=== PATIENT | female | born 1950 | race Caucasian/White ===

== ENCOUNTER → 2017-05-11 | Outpatient (CLI) | payer MEDICARE, OTHER ==
[~2017-05-11] MED LIST: ACET325 PO; COMMODE 3:1; DOXY100 PO; IMIT25TA PO; LOVA20; MIDO5 PO; MVI PO; NADO1TAB17 PO; NADO80TA PO; RIVA10 PO; TOPI25 PO; TRAM50 PO; VITA100T65 PO; WELL150T PO
[2017-05-11 10:29] LABS: AUTOMATED NEUTROPHIL # 3.9 TH/MM3 (1.8-7.7); BASOPHIL % 0.8 % (0.0-2.0); EOSINOPHIL # 0.4 TH/MM3 (0-0.4); EOSINOPHIL % 5.8 % (0.0-4.0); HEMATOCRIT 40.6 % (35.0-46.0); HEMO FLAGS DIFF FINAL; LYMPH % 24.5 % (9.0-44.0); LYMPHOCYTE # 1.5 TH/MM3 (1.0-4.8); MEAN CORPUSCULAR HEMOGLOBIN 32.2 PG (27.0-34.0); MEAN CORPUSCULAR HGB CONC 32.9 % (32.0-36.0); MONO % 7.9 % (0.0-8.0); PLATELET COUNT 188 TH/MM3 (150-450); RED BLOOD COUNT 4.14 MIL/MM3 (4.00-5.30); RED CELL DISTRIBUTION WIDTH 13.9 % (11.6-17.2); WHITE BLOOD COUNT 6.3 TH/MM3 (4.0-11.0)
--- NOTE | 2017-05-11 17:22 | EKG ---
Date Performed: 05/11/2017 Time Performed: 10:32:20 PTAGE: 66 years EKG: Sinus rhythm POSSIBLE RIGHT VENTRICULAR CONDUCTION DELAY Since previous tracing, no significant change noted BORD CASTRO ECG PREVIOUS TRACING : 03/07/2015 14.38 DOCTOR: Dung Bills Interpretating Date/Time 05/11/2017 17:22:00
== END ==
LOC: CLAB 10:04
PROVIDERS: ATTEND Surgery
DX: D05.12 Intraductal carcinoma in situ of left breast (principal); R94.31 Abnormal electrocardiogram [ECG] [EKG]
CPT/HCPCS: 36415; 85025; 93005

== ENCOUNTER 2018-04-16 14:32 | Inpatient (IN) ==
[2018-04-16] MEDS ORDERED: Ibuprofen 600 MG Tablet PO ONE (16:29)
[2018-04-16] MEDS ORDERED: MethylPREDNISolone Sod Succinate Inj 125 MG/2 ML Vial IV.PUSH ONE ×2 (16:29→22:00)
[2018-04-16] MEDS ORDERED: Sod Chloride 0.9% Inj 1,000 ML IV.SIG SCH (16:30)
--- NOTE | 2018-04-16 16:35 | ED ---
HPI General Chief Complaint: Respiratory Symptoms Stated Complaint: respiratory symptoms x 1 wk Time Seen by Provider: 04/16/18 16:24 Source: patient Mode of arrival: ambulatory Limitations: no limitations History of Present Illness HPI Narrative: Patient is a 67-year-old female who presents to the emergency room with complaints of fever, cough, congestion which has been ongoing for the past week. Patient reports that for the past week, she has had low-grade fevers with a T-max of 102 degrees. Patient reports that she has been coughing and bringing up thick yellow to green sputum. Patient reports that she feels congested nasally, reports that with her low-grade fevers, she has been taking antipyretics for relief of her symptoms. Patient reports that the last time she took either Tylenol Motrin was last night. Denies any sick contacts at home. She did have a flu vaccine this year. Patient reports history of hypothyroidism as well as reactive airway disease. Patient is a non-smoker, no recent travels or trips, no other complaints. MD Complaint: Reports fever, cough and nasal congestion Onset (ago): week(s) Duration: constant Severity: moderate Severity scale (1-10): 7 Relieving factors: nothing Exacerbating factors: nothing Description of mucous: Reports yellow and green Able to tolerate fluids by mouth: Yes Associated symptoms: Reports fever, chills, myalgias, rhinorrhea, nasal congestion and cough Treatments prior to arrival: Reports none Related Data Home Medications Medication Instructions Recorded Confirmed Cholesterol Med 04/16/18 bupropion HCl [Wellbutrin XL] 150 mg PO QPM 04/16/18 04/16/18 cranberry 04/16/18 nadolol 40 mg PO DIRECTED 04/16/18 04/16/18 sumatriptan succinate [Imitrex] 04/16/18 topiramate [Topamax] 50 mg PO BID 04/16/18 04/16/18 Allergies Allergy/AdvReac Type Severity Reaction Status Date / Time codeine Allergy Severe VOMITING Unverified 01/06/17 19:02 penicillin G Allergy Severe Hives Unverified 04/16/18 14:47 Sulfa (Sulfonamide Allergy Severe Hives Unverified 04/16/18 14:47 Antibiotics) thiopental Allergy Severe Respiratory Unverified 04/16/18 14:47 Failure diatrizoate meglumine Allergy Intermediate NAUSEA/VOMI Unverified 01/06/17 19:02 TING gadobenic acid Allergy Intermediate NAUSEA/VOMI Unverified 01/06/17 19:02 TING gadodiamide Allergy Intermediate NAUSEA/VOMI Unverified 01/06/17 19:02 TING gadoteridol Allergy Intermediate NAUSEA/VOMI Unverified 01/06/17 19:02 TING iodixanol Allergy Intermediate NAUSEA/VOMI Unverified 01/06/17 19:02 TING iohexol Allergy Intermediate NAUSEA/VOMI Unverified 01/06/17 19:02 TING ciprofloxacin AdvReac Intermediate Hives Unverified 04/16/18 14:47 TAPE Allergy Severe Blister Uncoded 04/16/18 14:47 Review of Systems ROS: all other systems reviewed are negative [facility] Medical History Medical History High cholesterol (Acute) History of breast cancer (Acute) History of fracture of right hip (Acute) History of hysterectomy (Acute) Migraine (Acute) Osteoporosis (Acute) Surgical History Surgical History History of appendectomy (Acute) History of bilateral mastectomy (Acute) History of cholecystectomy (Acute) History of sinus surgery (Acute) History of total left hip replacement (Acute) Social History Social History Substance History: No History of Abuse Smoking Status: Former smoker How Often Do You Have a Drink Containing Alcohol: Never Immunization History Tetanus Immunization: Unsure Exam Narrative Exam Narrative: GENERAL: Moderate disease SKIN: Focused skin assessment warm/dry. HEAD: Atraumatic. Normocephalic. EYES: Pupils equal and round. No scleral icterus. No injection or drainage. ENT: No nasal bleeding or discharge. Mucous membranes pink and moist. NECK: Trachea midline. No JVD. CARDIOVASCULAR: Tachycardic. No murmur appreciated. RESPIRATORY: No accessory muscle use. Patient with wheezing at lung bases, rhonchi at lung bases. Breath sounds equal bilaterally. GASTROINTESTINAL: Abdomen soft, non-tender, nondistended. Hepatic and splenic margins not palpable. MUSCULOSKELETAL: No obvious deformities. No clubbing. No cyanosis. No edema. NEUROLOGICAL: Awake and alert. No obvious cranial nerve deficits. Motor grossly within normal limits. Normal speech. PSYCHIATRIC: Appropriate mood and affect; insight and judgment normal. Course Initial Documented Vital Signs Temperature 101.0 F H 04/16/18 14:43 Pulse Rate 117 H 04/16/18 14:43 Respiratory Rate 20 04/16/18 14:43 Blood Pressure 140/79 04/16/18 14:43 Pulse Oximetry 93 L 04/16/18 14:43 Last Documented Vital Signs Temperature 99.2 F 04/16/18 17:51 Pulse Rate 94 H 04/16/18 17:51 Respiratory Rate 16 04/16/18 17:51 Blood Pressure 104/51 L 04/16/18 17:51 Pulse Oximetry 94 L 04/16/18 17:53 Medical Decision Making MDM Narrative Medical decision making narrative: During the course of the patients emergency department visit, the patients history, examination, and differential diagnosis were reviewed with the patient. The patient was placed on a night monitor with oximetry and frequent blood pressure monitoring. The patient had an IV access obtained and blood work sent for analysis. The patient was initially provided Motrin, IV steroids as well as IV fluid. Patient is currently refusing any duo nebs as she says that this does not help her and only makes her heart rate fast. The patients laboratory studies were reviewed and remarkable for: wbc 12, hgb 12.5, hct 38.2, glucose 284 sodium 136, potassium 3.2, bun 10, creatine 0.87 lactic acid 1.0 trop less than 0.02 Radiology studies were reviewed and remarkable for : no evidence of infiltrates I reviewed all labs and also to the patient in detail, patient will require observation overnight as she does have a grossly abnormal EKG. This EKG shows some ST segment depressions as well as T wave inversions in leads II, III, aVF as well as V3 to V6 which is a change from previous EKGs. Plan to admit her to the chest pain unit for trending of her cardiac enzymes. Patient with no symptoms of chest pain at this time, reports only pain to her ribs when she coughs. Case reviewed with Dr. Saeed who accepts patient to service Medical Screen Exam Complete: Yes Emergency Medical Condition: Yes Differential Diagnosis Differential Diagnosis: Influenza, pneumonia, reactive airway disease, viral syndrome Medical Records Medical records reviewed: Yes I reviewed the patient's medical records. Lab Data Result diagrams: 04/16/18 16:38 04/16/18 16:38 Lab Results 04/16/18 04/16/18 04/16/18 Range/Units 16:30 16:38 16:38 CBC w Diff Slide review pending WBC 12.0 H (4.0-11.0) th/mm3 RBC 3.94 L (4.00-5.30) mil/mm3 Hgb 12.5 (11.6-15.3) gm/dL Hct 38.2 (35.0-46.0) % MCV 96.8 (80.0-100.0) fL MCH 31.7 (27.0-34.0) pg MCHC 32.8 (32.0-36.0) % RDW 12.5 (11.6-17.2) % Plt Count 284 (150-450) th/mm3 MPV 8.9 (7.0-11.0) fL Neut % (Auto) 81.3 H (16.0-70.0) % Lymph % (Auto) 7.4 L (9.0-44.0) % Bollinger % (Auto) 7.4 (0.0-8.0) % Eos % (Auto) 1.2 (0.0-4.0) % Baso % (Auto) 2.7 H (0.0-2.0) % Neut # (Auto) 9.8 H (1.8-7.7) th/mm3 Lymph # (Auto) 0.9 L (1.0-4.8) th/mm3 Bollinger # (Auto) 0.9 (0.0-0.9) th/mm3 Eos # (Auto) 0.1 (0.0-0.4) th/mm3 Baso # (Auto) 0.3 H (0.0-0.2) th/mm3 Differential Comment . Sodium 136 (136-145) meq/L Potassium 3.2 L (3.5-5.1) meq/L Chloride 99 (98-107) meq/L Carbon Dioxide 27.9 (21.0-32.0) meq/L Anion Gap 9 (5-15) meq/L BUN 10 (7-18) mg/dL Creatinine 0.87 (0.50-1.00) mg/dL Estimated GFR 65 L (>89) mL/min Random Glucose 125 H (74-106) mg/dL Lactic Acid (0.4-2.0) mmol/L Calcium 8.9 (8.5-10.1) mg/dL Magnesium 2.0 (1.5-2.5) mg/dL Total Bilirubin 0.7 (0.2-1.0) mg/dL AST 42 H (15-37) U/L ALT 50 (10-53) U/L Alkaline Phosphatase 173 H (45-117) U/L Total Creatine Kinase 96 (26-192) U/L Troponin I Less than 0.02 L (0.02-0.05) ng/mL Total Protein 7.7 (6.4-8.2) g/dL Albumin 3.0 L (3.4-5.0) g/dL 04/16/18 Range/Units 16:38 CBC w Diff WBC (4.0-11.0) th/mm3 RBC (4.00-5.30) mil/mm3 Hgb (11.6-15.3) gm/dL Hct (35.0-46.0) % MCV (80.0-100.0) fL MCH (27.0-34.0) pg MCHC (32.0-36.0) % RDW (11.6-17.2) % Plt Count (150-450) th/mm3 MPV (7.0-11.0) fL Neut % (Auto) (16.0-70.0) % Lymph % (Auto) (9.0-44.0) % Bollinger % (Auto) (0.0-8.0) % Eos % (Auto) (0.0-4.0) % Baso % (Auto) (0.0-2.0) % Neut # (Auto) (1.8-7.7) th/mm3 Lymph # (Auto) (1.0-4.8) th/mm3 [place]linger # (Auto) (0.0-0.9) th/mm3 Eos # (Auto) (0.0-0.4) th/mm3 Baso # (Auto) (0.0-0.2) th/mm3 Differential Comment Sodium (136-145) meq/L Potassium (3.5-5.1) meq/L Chloride (98-107) meq/L Carbon Dioxide (21.0-32.0) meq/L Anion Gap (5-15) meq/L BUN (7-18) mg/dL Creatinine (0.50-1.00) mg/dL Estimated GFR (>89) mL/min Random Glucose (74-106) mg/dL Lactic Acid 1.0 (0.4-2.0) mmol/L Calcium (8.5-10.1) mg/dL Magnesium (1.5-2.5) mg/dL Total Bilirubin (0.2-1.0) mg/dL AST (15-37) U/L ALT (10-53) U/L Alkaline Phosphatase (45-117) U/L Total Creatine Kinase (26-192) U/L Troponin I (0.02-0.05) ng/mL Total Protein (6.4-8.2) g/dL Albumin (3.4-5.0) g/dL Imaging Data Radiologist's impression: Chest X-Ray 04/16/18 16:29 CONCLUSION: No acute cardiopulmonary disease. There is no evidence of pneumonia. ECG Data EKG Prior to Arrival: No Attestation: I personally reviewed and interpreted this ECG as follows: Prior ECG tracings: available for review Interpretation: EKG at 1641 shows normal sinus rhythm at 97 bpm, QT/QTc 307/361 , patient with diffuse ST and T wave inversions in leads V3 to V6 as well as 2, 3 and aVF. This is a change when compared to previous EKGs from May 11, 2017. Discharge Plan Discharge Disposition Patient Disposition: 30 Still Patient Discharge Condition Condition: Stable Discharge Details Diagnosis: Abnormal EKG, Bronchitis Physicians Team ED Provider: Sara Fuentes Primary Care Provider: Jeannette Alexander Rxs /Orders / Referrals /Forms Prescriptions: No Action sumatriptan succinate [Imitrex] 50 mg Tablet RF: 0 nadolol 40 mg Tablet 40 mg PO DIRECTED RF: 0 bupropion HCl [Wellbutrin XL] 150 mg Tablet Extended Release 24 Hr 150 mg PO QPM RF: 0 topiramate [Topamax] 50 mg Tablet 50 mg PO BID RF: 0 Cholesterol Med RF: 0 cranberry RF: 0 Discharge Interventions Interventions: Vital Signs Last Done: 04/16/18 17:51 Status ED Status: With Doctor
[2018-04-16 16:59] LABS: Chloride 99 meq/L (98-107); Potassium 3.2 meq/L (3.5-5.1); Sodium 136 meq/L (136-145)
[2018-04-16 17:00] LABS: Baso # (Auto) 0.3 th/mm3 (0.0-0.2); Baso % (Auto) 2.7 % (0.0-2.0); Eos # (Auto) 0.1 th/mm3 (0.0-0.4); Eos % (Auto) 1.2 % (0.0-4.0); Hematocrit 38.2 % (35.0-46.0); Hemoglobin 12.5 gm/dL (11.6-15.3); Lymph # (Auto) 0.9 th/mm3 (1.0-4.8); Lymph % (Auto) 7.4 % (9.0-44.0); Mean Corpuscular HGB Conc 32.8 % (32.0-36.0); Mean Corpuscular Hemoglobin 31.7 pg (27.0-34.0); Mean Corpuscular Volume 96.8 fL (80.0-100.0); Mean Platelet Volume 8.9 fL (7.0-11.0); Mono # (Auto) 0.9 th/mm3 (0.0-0.9); Mono % (Auto) 7.4 % (0.0-8.0); Neut # (Auto) 9.8 th/mm3 (1.8-7.7); Neut % (Auto) 81.3 % (16.0-70.0); Platelet Count 284 th/mm3 (150-450); Red Blood Count 3.94 mil/mm3 (4.00-5.30); Red Cell Distribution Width 12.5 % (11.6-17.2)
[2018-04-16 17:02] LABS: Anion Gap 9 meq/L (5-15); Blood Urea Nitrogen 10 mg/dL (7-18); Calcium 8.9 mg/dL (8.5-10.1); Carbon Dioxide 27.9 meq/L (21.0-32.0); Glucose,Random 125 mg/dL (74-106)
[2018-04-16 17:05] LABS: Alanine Aminotransferase 50 U/L (10-53); Aspartate Aminotransferase 42 U/L (15-37); Glomerular Filtration Rate 65 mL/min (>89)
[2018-04-16 17:07] LABS: Total Protein 7.7 g/dL (6.4-8.2)
[2018-04-16 17:08] LABS: Alkaline Phosphatase 173 U/L (45-117)
--- NOTE | 2018-04-16 17:08 | XR ---
EXAM DATE: 04/16/2018 4:57 PM EST AGE/SEX: 67 years / Female INDICATIONS: Fever. CLINICAL DATA: This is the patient's initial encounter. Patient reports that signs and symptoms have been present for 1 week and indicates a pain score of 4/10. MEDICAL/SURGICAL HISTORY: . COPD None. COMPARISON: POI, CT CHEST W/O CONTRAST, 10/05/2017. . FINDINGS: A single AP view of the chest demonstrates the lungs to be symmetrically aerated without evidence of mass, infiltrate or effusion. The cardiomediastinal contours are unremarkable. Osseous structures a re intact with postsurgical changes again noted involving the right breast and axillary region with m ultiple clips and idalmis. Implants are present. CONCLUSION: No acute cardiopulmonary disease. There is no evidence of pneumonia. Electronically signed by: Dhruv Carrillo MD 04/16/2018 5:06 PM EST
[2018-04-16 17:20] LABS: Creatine Kinase 96 U/L (26-192)
[2018-04-16] MEDS ORDERED: Azithromycin Inj 500 MG in Sodium Chlor 0.9% Inj 250 ML IV.SIG ONE (17:26)
[2018-04-16] MEDS ORDERED: Aspirin 325 MG Tablet PO ONE (18:18)
[2018-04-16] MEDS ORDERED: Heparin 10,000 UNITS/10 ML Vial (for IV use) IV.PUSH STA (18:21)
[2018-04-16 18:22] LABS: Eosinophils 2 % (0-4); Lymphocytes 8 % (9-44); Monocytes 4 % (0-8)
[2018-04-16 18:23] LABS: Platelet Estimate Normal (Normal); Platelet Morphology Normal (Normal); RBC Morphology Normal (Normal)
[2018-04-16 18:50] LABS: Activated Partial Thrombo Time 32.6 sec (23.4-31.7); INR 1.1 Ratio; Prothrombin Time 11.3 sec (9.8-11.6)
[2018-04-16] MEDS: Sod Chloride 0.9% Inj 1,000 ML IV.CONT SCH (19:33)
[2018-04-16] MEDS: Heparin Drip 25,000 UNIT/250 ML BAG IV.CONT PRN (19:46)
[2018-04-16] MEDS: Topiramate 25 MG Tablet PO SCH (23:46)
[2018-04-17 01:22] LABS: Bilirubin,Urine Negative (Negative); Clarity,Urine Clear (Clear); Color,Urine Yellow (Yellw/Straw); Glucose,Urine (UA) Negative (Negative); Leukocyte Esterase,Urine Negative (Negative); Nitrite,Urine Negative (Negative); Specific Gravity,Urine Less/Equal 1.005 (1.002-1.035); Urobilinogen,Urine 0.2 mg/dL (Less than 2)
[2018-04-17 01:27] LABS: Squamous Epithelial Cell,Urine 0-5 /hpf (0-5); WBC,Urine 0-5 /hpf (0-5)
--- NOTE | 2018-04-17 03:30 | P.HPIM ---
History of Present Illness Service: [facility] Primary Care Physician: Jeannette Alexander MD Chief Complaint: Fever, cough, and congestion History of Present Illness: Mrs. Lyn is a 67-year-old female with a history of hyperthyroidism, breast cancer tx with chemo 20 yrs ago (no radiation), and asthma who presented to the emergency room in [place] complaining of fever, productive cough with green to thick yellow sputum, and congestion ongoing for a week. She had an abnormal EKG and was admitted to the [facility] for observation but after discussing the EKG changes with Dr. Navarrete, the fire protection designer on-call, Dr. Saeed decided to transfer the patient to [facility] for further cardiac evaluation. The patient is seen shortly after arrival from [place]. She reports that about two weeks ago, she developed right chest discomfort/tightness with difficulty taking a deep breath present at all times. She said she'd felt similar symptoms from asthma exacerbations. Symptoms weren't exertional. One week ago, her symptoms started to become accompanied by fever up to tmax 102.6 with productive cough with thick discolored sputum. She states that she never had any chest pain or overt shortness of breath. She has been having night sweats. She reports that several family members have cardiac disease. Her father at age 65 form heart problems. 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 Review of Systems All other systems reviewed negative except as stated in HPI PMFSH - History History Provided By: Patient - Medical History Medical History: Medical History (Last Updated 04/17/18 @ 03:23 by DEVAN Finn) High cholesterol History of breast cancer History of fracture of right hip History of hysterectomy Hyperparathyroidism Hyperthyroidism Migraine Osteoporosis - Surgical History Surgical History: Surgical History (Last Reviewed 04/17/18 @ 03:12 by DEVAN Finn) History of appendectomy History of bilateral mastectomy History of cholecystectomy History of sinus surgery History of total left hip replacement - Family History Family History: Family History (Last Updated 04/17/18 @ 04:32 by DEVAN Finn) Father Family history of heart disease Grandparent Breast cancer Family history of heart disease Aunt Breast cancer Other Diabetes mellitus Family history of hypertension - Social History I have reviewed the patient's Social History: Yes - Tobacco History Second Hand Smoke Exposure: No Tobacco Use In Past 30 Days: No Smoking Status: Former smoker Tobacco Type: Cigarettes Packs Per Day: 1 Years Smoked: 47 Smoking End Date: 2+ years ago - Alcohol History How Often Do You Have a Drink Containing Alcohol: Never - Substance Use History Substance History: No History of Abuse - Immunization History Tetanus Immunization: >5 Years Hx Influenza Vaccine This Season: No Medications and Allergies Active Medications: Active Medications Albuterol (Albuterol Neb (Prn)) 1.25 mg NEB Q2HR NEB PRN PRN Reason: SHORTNESS OF BREATH Aspirin (Aspirin) 325 mg PO DAILY [facility] Atorvastatin Calcium (Lipitor) 40 mg PO HS [facility] Last Admin: 04/16/18 23:45 Dose: 40 mg Bupropion HCl (Wellbutrin Sr) 150 mg PO QPM [facility] Heparin Sodium/Dextrose (Heparin/D5w 25,000 U/250 Ml) 25,000 unit in 250 mls @ 6 mls/hr IV.CONT TITRATE PRN; Protocol PRN Reason: Per Protocol Last Titration: 04/17/18 02:19 Dose: 700 units/hr, 7 mls/hr Sodium Chloride (Ns Inj) 1,000 mls @ 42 mls/hr IV.CONT .[id number] [facility] Last Admin: 04/16/18 19:33 Dose: 42 mls/hr Methylprednisolone Sodium Succinate (Solumedrol Inj) 60 mg IV.PUSH Q12HR [facility] Nadolol (Corgard) 40 mg PO DAILY [facility] Sodium Chloride (Ns Flush) 2 ml IV.FLUSH BID [facility] Last Admin: 04/16/18 23:45 Dose: 2 ml Sodium Chloride (Ns Flush) 2 ml IV.FLUSH PRN PRN PRN Reason: FLUSH AFTER USING IV ACCESS Topiramate (Topamax) 50 mg PO BID [facility] Last Admin: 04/16/18 23:46 Dose: 50 mg Allergies Allergy/AdvReac Type Severity Reaction Status Date / Time codeine Allergy Severe VOMITING Unverified 01/06/17 19:02 penicillin G Allergy Severe Hives Unverified 04/16/18 14:47 Sulfa (Sulfonamide Allergy Severe Hives Unverified 04/16/18 14:47 Antibiotics) thiopental Allergy Severe Respiratory Unverified 04/16/18 14:47 Failure diatrizoate meglumine Allergy Intermediate NAUSEA/VOMI Unverified 01/06/17 19:02 TING gadobenic acid Allergy Intermediate NAUSEA/VOMI Unverified 01/06/17 19:02 TING gadodiamide Allergy Intermediate NAUSEA/VOMI Unverified 01/06/17 19:02 TING gadoteridol Allergy Intermediate NAUSEA/VOMI Unverified 01/06/17 19:02 TING iodixanol Allergy Intermediate NAUSEA/VOMI Unverified 01/06/17 19:02 TING iohexol Allergy Intermediate NAUSEA/VOMI Unverified 01/06/17 19:02 TING ciprofloxacin AdvReac Intermediate Hives Unverified 04/16/18 14:47 TAPE Allergy Severe Blister Uncoded 04/16/18 14:47 Home Medications Medication Instructions Recorded Confirmed Type Cholesterol Med 04/16/18 History bupropion HCl [Wellbutrin XL] 150 mg PO QPM 04/16/18 04/16/18 History cranberry 04/16/18 History nadolol 40 mg PO DIRECTED 04/16/18 04/16/18 History sumatriptan succinate [Imitrex] 04/16/18 History topiramate [Topamax] 50 mg PO BID 04/16/18 04/16/18 History Exam Vital signs: Vital Signs 04/16/18 14:43 04/16/18 16:18 04/16/18 17:51 Temperature 101.0 F H 99.2 F Pulse Rate 117 H 93 H 94 H Respiratory Rate 20 16 16 Blood Pressure 140/79 122/65 104/51 L Pulse Oximetry 93 L 92 L 94 L 04/16/18 17:53 04/16/18 19:22 04/16/18 20:00 Temperature 97.3 F L Pulse Rate 88 95 H Respiratory Rate 20 16 Blood Pressure 114/61 126/58 L Pulse Oximetry 94 L 92 L 94 L 04/16/18 22:15 04/17/18 01:25 04/17/18 01:48 Temperature 97.7 F Pulse Rate 78 80 82 Respiratory Rate 18 Blood Pressure 103/56 L Pulse Oximetry 95 04/17/18 02:05 Temperature Pulse Rate 83 Respiratory Rate Blood Pressure Pulse Oximetry Intake & Output 04/16/18 04/16/18 04/17/18 06:59 18:59 06:59 Intake Total 1250 / 1250 Output Total 500 / 500 Balance 1250 / 1250 -500 / -500 Weight 54 kg 55.9 kg Intake: IV 1250 / 1250 Azithromycin Inj 500 MG In NS 250 / 250 Inj 250 ML @ 250 mls/hr IV.SIG ONCE ONE Rx#:[id number] NS Inj 1,000 ML @ 1000 mls/hr 1000 / 1000 IV.SIG BOLUS SHITAL Rx#:[id number] Output: Urine 500 / 500 Other: Date of Last Bowel Movement 04/13/18 Weight On Admission 55.8 kg Narrative: GENERAL: This is a thin older female patient, in no apparent distress. SKIN: No rashes. Cool and dry. forearms with some bruising. HEAD: Atraumatic. Normocephalic. EYES: No scleral icterus. No injection or drainage. ENT: Nose without bleeding, purulent drainage. NECK: Trachea midline. No JVD. CARDIOVASCULAR: Regular rate and rhythm without murmurs, gallops, or rubs. RESPIRATORY: Expiratory wheezes posteriorly at lung bases; respirations even and unlabored. GASTROINTESTINAL: Abdomen soft, non-tender, nondistended. No guarding. MUSCULOSKELETAL: Extremities without clubbing, cyanosis, or edema. No calf tenderness. NEUROLOGICAL: Awake and alert. Motor and sensory grossly within normal limits. Normal speech. . Results - Labs CBC & Chem 7: 04/16/18 16:38 04/16/18 16:38 Labs: Short CBC 04/16/18 Range/Units 16:38 WBC 12.0 H (4.0-11.0) th/mm3 Hgb 12.5 (11.6-15.3) gm/dL Hct 38.2 (35.0-46.0) % Plt Count 284 (150-450) th/mm3 [facility] 04/16/18 16:38 Sodium 136 Potassium 3.2 L Chloride 99 Carbon Dioxide 27.9 BUN 10 Creatinine 0.87 Calcium 8.9 Cardiac Enzymes 04/16/18 04/16/18 Range/Units 16:30 20:48 Total Creatine Kinase 96 (26-192) U/L Troponin I Less than 0.02 L Less than 0.02 L (0.02-0.05) ng/mL Liver Function 04/16/18 Range/Units 16:38 Total Bilirubin 0.7 (0.2-1.0) mg/dL AST 42 H (15-37) U/L ALT 50 (10-53) U/L Alkaline Phosphatase 173 H (45-117) U/L Albumin 3.0 L (3.4-5.0) g/dL Urine 04/17/18 Range/Units 00:45 Urine Color Yellow (Yellw/Straw) Urine Clarity Clear (Clear) Urine pH 6.0 (5.0-8.5) Ur Specific [place] Less/equal 1.005 (1.002-1.035) Urine Protein Negative (Neg-Trace) mg/dL Urine Glucose (UA) Negative (Negative) mg/dL - Imaging Impressions Chest X-Ray 04/16/18 16:29 CONCLUSION: No acute cardiopulmonary disease. There is no evidence of pneumonia. Caprini VTE Risk Assessment Caprini VTE Risk Assessment: Moderate/High Risk (score >= 2) Caprini Risk Assessment Model: Point Value = 1 Point Value = 2 Point Value = 3 Point Value = 5 Age 41-60 Minor surgery BMI > 25 kg/m2 Swollen legs Varicose veins or History of unexplained or recurrent spontaneous Oral contraceptives or hormone replacement Sepsis (< 1 month) Serious lung disease, including pneumonia (< 1 month) Abnormal pulmonary function Acute myocardial infarction Congestive heart failure (< 1 month) History of inflammatory bowel disease Medical patient at bed rest Age 61-74 Arthroscopic surgery Major open surgery (> 45 min) Laparoscopic surgery (> 45 min) Malignancy Confined to bed (> 72 hours) Immobilizing plaster cast Central venous access Age >= 75 History of VTE Family history of VTE Factor V Leiden Prothrombin [id number] Lupus anticoagulant Anticardiolipin antibodies Elevated serum homocysteine Heparin-induced thrombocytopenia Other congenital or acquired thrombophilia Stroke (< 1 month) Elective arthroplasty Hip, pelvis, or leg fracture Acute spinal cord injury (< 1 month) Prophylaxis Regimen: Total Risk Factor Score Risk Level Prophylaxis Regimen 0-1 Low Early ambulation 2 Moderate Order ONE of the following: *Sequential Compression Device (SCD) *Heparin 5000 units SQ BID 3-4 Higher Order ONE of the following medications: *Heparin 5000 units SQ TID *Enoxaparin/Lovenox 40 mg SQ daily (WT < 150 kg, CrCl > 30 mL/min) *Enoxaparin/Lovenox 30 mg SQ daily (WT < 150 kg, CrCl > 10-29 mL/min) *Enoxaparin/Lovenox 30 mg SQ BID (WT < 150 kg, CrCl > 30 mL/min) AND/OR *Sequential Compression Device (SCD) 5 or more Highest Order ONE of the following medications: *Heparin 5000 units SQ TID (Preferred with Epidurals) *Enoxaparin/Lovenox 40 mg SQ daily (WT < 150 kg, CrCl > 30 mL/min) *Enoxaparin/Lovenox 30 mg SQ daily (WT < 150 kg, CrCl > 10-29 mL/min) *Enoxaparin/Lovenox 30 mg SQ BID (WT < 150 kg, CrCl > 30 mL/min) AND *Sequential Compression Device (SCD) Assessment and Plan - Plan Mrs. Lyn is a 67-year-old female with a history of hyperthyroidism, breast cancer, and reactive airway disease who presented to the emergency room in [place] complaining of fever, productive cough with green to thick yellow sputum , and congestion ongoing for a week. She had an abnormal EKG and was admitted to the [facility] for observation but after discussing the EKG changes with Dr. Navarrete, the fire protection designer on-call, Dr. Saeed decided to transfer the patient to [facility] for further cardiac evaluation. Abnormal EKG -ST depression noted on initial EKG in the inferior and lateral leads; t-wave inversion in V3 and V4 - awaiting repeat EKG -Troponin I < 0.02 x 2, awaiting repeat -Patient placed on a heparin drip -Patient transferred to [facility] -consult to cardiology, Dr. Navarrete -check 2D echocardiogram to evaluate cardiac structure and function -N.p.o. except medication Respiratory infection -Blood cultures initially drawn -Follow results -Initially given a dose of azithromycin and ceftriaxone - will continue -Continue albuterol nebs every 2 hours as needed for shortness of breath or wheezing -continue IV Solumedrol Hypokalemia -Replaced in ER -Recheck labs in a.m. and follow results -replace as indicated DVT prophylaxis -On heparin drip at this time Discussed Condition With: Dr. Bonilla, patient, RN . H&P: Quality - VTE Deep Vein Thrombosis/Pulmonary Embolism Present on Admission: No
[2018-04-17] MEDS ORDERED: Azithromycin Inj 250 MG in Sodium Chlor 0.9% Inj 250 ML IV.SIG SCH (04:00)
[2018-04-17 05:06] LABS: Hematocrit 34.5 % (35.0-46.0); Hemoglobin 11.5 gm/dL (11.6-15.3); Mean Corpuscular HGB Conc 33.3 % (32.0-36.0); Mean Corpuscular Volume 99.3 fL (80.0-100.0); Mean Platelet Volume 9.3 fL (7.0-11.0); Platelet Count 229 th/mm3 (150-450); Red Blood Count 3.48 mil/mm3 (4.00-5.30); Red Cell Distribution Width 13.2 % (11.6-17.2); White Blood Count 6.6 th/mm3 (4.0-11.0)
[2018-04-17 05:37] LABS: Thyroid Stimulating Hormone 0.052 uIU/mL (0.358-3.740)
[2018-04-17] MEDS: Azithromycin Inj 250 MG in Sodium Chlor 0.9% Inj 250 ML IV.SIG SCH (06:29)
[2018-04-17] MEDS: Topiramate 25 MG Tablet PO SCH ×2 (08:54→21:28)
[2018-04-17] MEDS: Aspirin 325 MG Tablet PO SCH ×2 (08:55→16:35)
[2018-04-17] MEDS ORDERED: MethylPREDNISolone Sod Succinate Inj 125 MG/2 ML Vial IV.PUSH SCH (09:00)
[2018-04-17] MEDS ORDERED: Nadolol 20 MG Tablet PO SCH (09:00)
[2018-04-17] MEDS ORDERED: HYDROcodone 5 MG/Homatropine 1.5 MG Syrup 5 ML UDC PO PRN (13:15)
--- NOTE | 2018-04-17 14:00 | P.PNIM ---
Subjective Interval history: 67yo f admitted with weakness and severe cough. She has had flu like symptoms with cough and congestion for weeks she was noted to have concerning changes on her EKG for ischemia for which she is admitted. serial troponins are negative and patient currently denies cp, or cardiac history.Daughter at bedside states patient unable to get out of bed for the past few days due to weakness. pt seen and examined, states she is still having dry hacking coughing, no fevers, no nv, no significant cp or sob Physical Exam Vital signs: Last Vital Signs Temp 97.9 F 04/17/18 12:00 Pulse 84 04/17/18 13:00 Resp 16 04/17/18 12:00 BP 98/52 L 04/17/18 12:00 Pulse Ox 96 04/17/18 12:00 Intake & Output 04/15/18 04/16/18 04/17/18 04/18/18 06:59 06:59 06:59 06:59 Intake Total 1250 / 1250 450 / 450 Output Total 500 / 500 Balance 750 / 750 450 / 450 Weight 55 kg pleasant 67 yo thin Results Labs CBC & Chem 7: 04/17/18 03:36 04/16/18 16:38 Labs: Microbiology 04/16/18 16:38 Blood - Peripheral Aerobic Blood Culture - Preliminary No growth in 1 day 04/16/18 16:38 Blood - Peripheral Anaerobic Blood Culture - Preliminary No growth in 1 day 04/16/18 16:30 Blood - Peripheral Aerobic Blood Culture - Preliminary No growth in 1 day 04/16/18 16:30 Blood - Peripheral Anaerobic Blood Culture - Preliminary No growth in 1 day 04/16/18 17:54 Nasal Wash Influenza Types A,B Antigen - Final Negative for FLU A and B antigen Infection due to influenza A or B cannot be ruled out since the antigen present in the sample may be below the detection limit of the test. Imaging Imaging: Impressions Chest X-Ray 04/16/18 16:29 CONCLUSION: No acute cardiopulmonary disease. There is no evidence of pneumonia. Assessment and Plan Plan ACUTE BRONCHITIS and PNA though cxr is wo visible infiltrate clinically has pulm and upper resp tract infection, fevers and productive cough, cont abx for CAP, pulmonary tx, sputum cultures, influenza swab neg. ASTHMA, chronic intermittent, w acute bronchospasm - cont steroids, can change iv medrol to prednisone, patient can not tolerate albuterol but reports doing well w advair in the past will start symbicort and cont symptomatic tx for the cough EKG ABNORMALITY w st depression and now ant lat t wave inversions - concern for ischemic heart disease, no active cp symptoms and no cardiac hx, she is on a heparin gtt, cardiology consult and echo pending, will change nadolol to metoprolol., cont asa daily may need stress testing HYPERTHYROIDISM - on nadolol, change to metoprolol, tsh is low, cont bb control, consider tapazole, follow up w endocrine MIGRAINE MORTENSEN - on topamax for prevention and imitrx prn HYPOKALEMIA - replaced, check mg DYSLIPIDEMIA - on statin at home, will get fasting lipid profile for risk stratification and continue statin HX BREAST CA s/p chemo, outpt followup. Progress Note: Quality VTE Deep Vein Thrombosis/Pulmonary Embolism Present on Admission: No
--- NOTE | 2018-04-17 14:17 | ECG ---
Date Performed: 04/16/2018 Time Performed: 16:41:28 PTAGE: 67 years EKG: Sinus rhythm POSSIBLE LEFT ATRIAL ENLARGEMENT POSSIBLE RIGHT VENTRICULAR CONDUCTION DELAY ST DEVIATION AND MODERA TE T-WAVE ABNORMALITY, CONSIDER ANTEROLATERAL ISCHEMIA CONSIDER INFERIOR ISCHEMIA ABNORMAL ECG PREVIOUS TRACING : 05/11/2017 10.32 DOCTOR: Roland Navarrete Interpretating Date/Time 04/17/2018 14:15:33
[2018-04-17] MEDS: predniSONE 10 MG Tablet PO SCH (14:22)
[2018-04-17] MEDS: Benzonatate 100 MG Capsule PO SCH ×2 (14:22→21:28)
[2018-04-17] MEDS: Budesonide-Formoterol 160/4.5 MCG 6 GM Inhaler INH SCH ×2 (14:23→21:28)
--- NOTE | 2018-04-17 14:26 | ECHRPT ---
Indication: CORONARY ATHEROSCLEROSIS CONCLUSIONS Normal left ventricular size. Wall thickness is measured at the upper limits of normal. The left ventricular size and function is normal with an ejection fraction of 65% [id number] mitral valve regurgitation. There is trace tricuspid valve regurgitation. A prominent epicardial fat pad is present. BP: / HR: Rhythm: Sinus MEASUREMENTS (Male / Female) Normal Values Technical Quality:Fair 2D ECHO LV Diastolic Diameter PLAX 4.4 cm 4.2 - 5.9 / 3.9 - 5.3 cm LV Systolic Diameter PLAX 3.2 cm IVS Diastolic Thickness 1.0 cm 0.6 - 1.0 / 0.6 - 0.9 cm LVPW Diastolic Thickness 1.0 cm 0.6 - 1.0 / 0.6 - 0.9 cm LV Relative Wall Thickness 0.5 RV Internal Dim ED PLAX 1.8 cm LVOT Diameter 2.2 cm Aortic Root Diameter 3.1 cm LA Systolic Diameter LX 3.3 cm 3.0 - 4.0 / 2.7 - 3.8 cm M-MODE AV Cusp Separation MM 2.1 cm DOPPLER AV Peak Velocity 110.0 cm/s AV Peak Gradient 4.8 mmHg AV Mean Gradient 2.0 mmHg AV Velocity Time Integral 21.9 cm LVOT Peak Velocity 91.7 cm/s LVOT Peak Gradient 3.4 mmHg LVOT Velocity Time Integral 16.5 cm AV Area Cont Eq vti 2.9 cm AV Area Cont Eq pk 3.2 cm Mitral E Point Velocity 74.0 cm/s Mitral A Point Velocity 60.2 cm/s Mitral E to A Ratio 1.2 LV E' Lateral Velocity 8.6 cm/s Mitral E to LV E' Lateral Ratio 8.6 LV E' Septal Velocity 8.0 cm/s Mitral E to LV E' Septal Ratio 9.3 PV Peak Velocity 128.0 cm/s PV Peak Gradient 6.6 mmHg FINDINGS LEFT VENTRICLE Normal left ventricular size. Wall thickness is measured at the upper limits of normal. The left ventricular systolic function is normal with an estimated ejection fraction in the range of 60-65%. RIGHT VENTRICLE Normal right ventricular size and systolic function. LEFT ATRIUM The left atrial size is normal. RIGHT ATRIUM The right atrial size is normal. ATRIAL SEPTUM No atrial level shunt is demonstrated by color flow Doppler interrogation. AORTA The aortic root and proximal ascending aorta are not well visualized. MITRAL VALVE [id number]-[id number] mitral valve regurgitation. AORTIC VALVE Trileaflet aortic valve. No aortic valve stenosis or regurgitation. TRICUSPID VALVE There is trace tricuspid valve regurgitation. The estimated pulmonary arterial pressure is __ mmHg. PULMONARY VALVE The pulmonary valve is not well visualized. VESSELS The inferior vena cava is normal in size. PERICARDIUM A prominent epicardial fat pad is present. Roland Navarrete MD, FACC, FSCAI (Electronically Signed) Final Date:17 April 2018 14:25
--- NOTE | 2018-04-17 16:19 | MB ---
cc: Roland Navarrete MD DATE: 04/17/2018 HISTORY OF PRESENT ILLNESS: Yvonne is a very pleasant 67-year-old lady with a history of hyperlipidemia, who presented to the [place] [facility] yesterday with chief complaint of nasal congestion. She was found to have significant ST segment depression in the anterolateral leads and inferior leads. She was transferred to [facility] for further evaluation and management. She completely denies any chest pain, chest discomfort, dyspnea, dyspnea on exertion, uses sympathomimetics. Otherwise, denies any GI or bleeding, PND, orthopnea or syncope. She does have fever prior to admission. PAST MEDICAL HISTORY: Includes a history of breast cancer, hyperlipidemia, right hip fracture, hysterectomy, hyperparathyroidism, hyperthyroidism, migraine headaches, osteoporosis, appendectomy, bilateral mastectomy, cholecystectomy, sinus surgery, total left hip replacement. ALLERGIES: CODEINE, PENICILLIN G, SULFA, THIOPENTAL, DIATRIZOATE, GADOBENIC ACID, GADODIAMIDE, GADOTERIDOL, IODIXANOL, IOHEXOL, CIPROFLOXACIN, TAPE. SOCIAL HISTORY: She is a former smoker. She smoked for 47 years. Denies alcohol use. MEDICATIONS: 1. Aspirin 325 daily. 2. Atorvastatin 40 mg at bedtime. 3. Azithromycin IV. 4. Ceftriaxone. 5. Heparin drip. 6. Prednisone 30 daily. 7. Topamax 50 mg b.i.d. PHYSICAL EXAMINATION: VITAL SIGNS: Blood pressure 98/52, pulse 86, respiratory rate 16, temperature 97.9. GENERAL: She is alert and oriented x3, in no acute distress. NECK: Supple. No JVD. No bruit. CARDIOVASCULAR: S1, S2. No murmurs, rubs, or gallops. LUNGS: Clear to auscultation bilaterally. ABDOMEN: Soft, nontender, nondistended with positive bowel sounds. EXTREMITIES: No extremity edema. DIAGNOSTIC DATA: Chest x-ray shows no acute cardiopulmonary disease. There is no evidence of pneumonia. EKG from 04/16/2018, normal sinus rhythm at 97 beats per minute, 1-[address] segment depression in lead V3, V4, V5, V6, II, III, aVF. EKG from 04/17/2018, normal sinus rhythm at 70 beats per minute with asymmetric T-wave inversion in lead V3, 0.5-[address] segment depression in II and III. LABORATORY DATA: White count 12.0, hemoglobin 12.5, hematocrit 38.2, platelet count 284. INR is 1.1. Sodium 136, potassium 3.2, chloride 99, bicarbonate 27.9, BUN 10, creatinine 0.7. Troponins less than 0.02 x3. TSH is 0.052 FINAL DIAGNOSES: 1. Abnormal EKG. 2. Dynamic EKG changes. 3. Elevated liver function tests. 4. Hypokalemia. 5. Anemia. 6. Elevated white count. 7. Fever. 8. Bronchitis. DISCUSSION: Being currently treated with aspirin and heparin. Interestingly, her EKG changes have improved with aspirin and heparin. She is completely asymptomatic, however. At this point in time, will need to followup her 2-D echo and follow trends in hemodynamic symptoms and EKG. MD OLAMIDE Bennett/niranjan , 01:52 PM , 02:00 PM
[2018-04-17] MEDS: Sod Chloride 0.9% Inj 1,000 ML IV.CONT SCH ×3 (16:35→21:42)
[2018-04-17] MEDS: buPROPion 150 MG 12 HR Tablet PO SCH (18:26)
[2018-04-17] MEDS: Metoprolol Tartrate 25 MG Tablet PO SCH (21:26)
[2018-04-18] MEDS: Sod Chloride 0.9% Inj 1,000 ML IV.CONT SCH ×5 (02:58→18:40)
[2018-04-18 05:14] LABS: Baso % (Auto) 0.2 % (0.0-2.0); Hematocrit 30.3 % (35.0-46.0); Hemoglobin 10.1 gm/dL (11.6-15.3); Lymph # (Auto) 0.8 th/mm3 (1.0-4.8); Lymph % (Auto) 5.4 % (9.0-44.0); Mean Corpuscular HGB Conc 33.3 % (32.0-36.0); Mean Corpuscular Hemoglobin 33.1 pg (27.0-34.0); Mean Corpuscular Volume 99.3 fL (80.0-100.0); Mono # (Auto) 0.6 th/mm3 (0.0-0.9); Neut % (Auto) 90.4 % (16.0-70.0); Platelet Count 252 th/mm3 (150-450); Red Blood Count 3.05 mil/mm3 (4.00-5.30); Red Cell Distribution Width 13.1 % (11.6-17.2); White Blood Count 15.5 th/mm3 (4.0-11.0)
[2018-04-18 05:37] LABS: Calcium 8.3 mg/dL (8.5-10.1); Carbon Dioxide 23.1 meq/L (21.0-32.0); Potassium 3.4 meq/L (3.5-5.1)
[2018-04-18 05:42] LABS: Chol/HDL Ratio 5.06 Ratio; HDL Cholesterol 23.9 mg/dL (40.0-60.0)
[2018-04-18] MEDS: Benzonatate 100 MG Capsule PO SCH ×3 (06:06→21:49)
[2018-04-18] MEDS: Azithromycin Inj 250 MG in Sodium Chlor 0.9% Inj 250 ML IV.SIG SCH (06:07)
[2018-04-18] MEDS: Heparin Drip 25,000 UNIT/250 ML BAG IV.CONT PRN (06:07)
[2018-04-18] MEDS: Topiramate 25 MG Tablet PO SCH ×2 (08:52→21:49)
[2018-04-18] MEDS: Budesonide-Formoterol 160/4.5 MCG 6 GM Inhaler INH SCH ×2 (08:53→21:49)
[2018-04-18] MEDS: Metoprolol Tartrate 25 MG Tablet PO SCH ×2 (08:53→21:49)
[2018-04-18] MEDS: Aspirin 325 MG Tablet PO SCH ×2 (08:54→09:53)
[2018-04-18] MEDS: predniSONE 10 MG Tablet PO SCH (08:55)
[2018-04-18] MEDS ORDERED: Famotidine 20 MG Tablet PO SCH (10:45)
[2018-04-18] MEDS: Famotidine 20 MG Tablet PO SCH ×2 (11:18→21:49)
--- NOTE | 2018-04-18 12:52 | P.PNIM ---
Subjective Interval history: 67yo f admitted with weakness and severe cough. She has had flu like symptoms with cough and congestion for weeks she was noted to have concerning changes on her EKG for ischemia for which she is admitted. serial troponins are negative and patient currently denies cp, or cardiac history.Daughter at bedside states patient unable to get out of bed for the past few days due to weakness. Patient had echo done and continues on heparin gtt overnight. pt seen and examined, her cough is a little better but still producing green sputum with some wheeze today, no fever, states she is having some midsternal chest pain, which she thinks may be gerd Physical Exam Vital signs: Last Vital Signs Temp 97.6 F 04/18/18 04:00 Pulse 76 04/18/18 10:00 Resp 16 04/18/18 04:00 BP 108/56 L 04/18/18 04:00 Pulse Ox 95 04/18/18 04:00 Intake & Output 04/16/18 04/17/18 04/18/18 04/19/18 06:59 06:59 06:59 06:59 Intake Total 1250 / 1250 4380 / 4380 1350 / 1350 Output Total 500 / 500 600 / 600 Balance 750 / 750 3780 / 3780 1350 / 1350 Weight 55 kg 58 kg 67yo thin w f aaox3 nad heart s1s2 reg lungs clear bases w anterior wheeze occasional good air movment abd soft nondt pos bs ext no edema no calf tenderness Results Labs CBC & Chem 7: 04/18/18 04:10 04/18/18 04:10 Labs: Microbiology 04/16/18 16:38 Blood - Peripheral Aerobic Blood Culture - Preliminary No growth in 2 days 04/16/18 16:38 Blood - Peripheral Anaerobic Blood Culture - Preliminary No growth in 2 days 04/16/18 16:30 Blood - Peripheral Aerobic Blood Culture - Preliminary No growth in 2 days 04/16/18 16:30 Blood - Peripheral Anaerobic Blood Culture - Preliminary No growth in 2 days Imaging Imaging: ECHO LEFT VENTRICLE Normal left ventricular size. Wall thickness is measured at the upper limits of normal. The left ventricular systolic function is normal with an estimated ejection fraction in the range of 60-65%. RIGHT VENTRICLE Normal right ventricular size and systolic function. LEFT ATRIUM The left atrial size is normal. RIGHT ATRIUM The right atrial size is normal. ATRIAL SEPTUM No atrial level shunt is demonstrated by color flow Doppler interrogation. AORTA The aortic root and proximal ascending aorta are not well visualized. MITRAL VALVE Lmaok-ri-[id number] mitral valve regurgitation. AORTIC VALVE Trileaflet aortic valve. No aortic valve stenosis or regurgitation. TRICUSPID VALVE There is trace tricuspid valve regurgitation. The estimated pulmonary arterial pressure is __ mmHg. PULMONARY VALVE The pulmonary valve is not well visualized. Assessment and Plan Plan ACUTE BRONCHITIS and PNA though cxr is wo visible infiltrate clinically has pulm and upper resp tract infection, fevers and productive cough, cont abx for CAP, pulmonary tx, sputum cultures, influenza swab neg. ASTHMA, chronic intermittent, w acute bronchospasm - cont steroids, can change iv medrol to prednisone, patient can not tolerate albuterol but reports doing well w advair , start symbicort and cont symptomatic tx for the cough EKG ABNORMALITY w st depression and now ant lat t wave inversions - concern for ischemic heart disease, no active cp symptoms and no cardiac hx, she is on a heparin gtt, cardiology consult and echo pending, will change nadolol to metoprolol., cont asa daily cont statin, now co of chest pain symptoms, will repeat ekg and follow up w cardiology recommendations, echo w nml lv function HYPERTHYROIDISM - on nadolol, change to metoprolol, tsh is low, cont bb control, consider tapazole, follow up w endocrine MIGRAINE MORTENSEN - on topamax for prevention and imitrx prn HYPOKALEMIA - replaced, check mg DYSLIPIDEMIA - on statin at home, will get fasting lipid profile for risk stratification and continue statin HX BREAST CA s/p chemo, outpt followup. Progress Note: Quality VTE Deep Vein Thrombosis/Pulmonary Embolism Present on Admission: No
[2018-04-18] MEDS ORDERED: MethylPREDNISolone Sod Succinate Inj 125 MG/2 ML Vial IV.PUSH ONE (13:00)
--- NOTE | 2018-04-18 13:55 | ECG ---
Date Performed: 04/18/2018 Time Performed: 10:51:00 PTAGE: 67 years EKG: Sinus rhythm Anterior T wave changes are nonspecific Borderline ECG Since the PREVIOUS TRACING , no significant change noted PREVIOUS TRACIN04/17/2018 04.04 DOCTOR: Roland Navarrete Interpretating Date/Time 04/18/2018 13:53:24
--- NOTE | 2018-04-18 13:55 | ECG ---
Date Performed: 04/17/2018 Time Performed: 04:04:34 PTAGE: 67 years EKG: Sinus rhythm . Ant/septal and lateral T wave changes may be due to myocardial ischemia Abnormal ECG Since the PREVIOUS TRACING , no significant change noted PREVIOUS TRACIN04/16/2018 16.41 DOCTOR: Roland Navarrete Interpretating Date/Time 04/18/2018 13:53:14
--- NOTE | 2018-04-18 14:27 | P.PNCA ---
Subjective Interval history: c/o intermittent epigastric pain and chest pain Medications and Allergies Active Medications: Active Medications Albuterol (Albuterol Neb (Prn)) 1.25 mg NEB Q2HR NEB PRN PRN Reason: SHORTNESS OF BREATH/WHEEZING Aspirin (Aspirin) 325 mg PO DAILY FOR[facility]LY [facility], [facility]1983 Last Admin: 04/18/18 08:54 Dose: 325 mg Aspirin (Aspirin) 325 mg PO DAILY [facility], [facility]1983 Last Admin: 04/18/18 09:53 Dose: Not Given Atorvastatin Calcium (Lipitor) 40 mg PO HS [facility], [facility]1983 Last Admin: 04/17/18 21:28 Dose: 40 mg Benzonatate (Tessalon Perles) 200 mg PO Q8H [facility], [facility]1983 Last Admin: 04/18/18 13:07 Dose: 200 mg Budesonide/Formoterol Fumarate (Symbicort 160/4.5 Mcg Inh) 2 puff INH BID [facility], 1928–1983 Last Admin: 04/18/18 08:53 Dose: 2 puff Bupropion HCl (Wellbutrin Sr) 150 mg PO QPM [facility], [facility]1983 Last Admin: 04/17/18 18:26 Dose: 150 mg Famotidine (Pepcid) 20 mg PO BID [facility]1983 Last Admin: 04/18/18 11:18 Dose: 20 mg Hydrocodone Bit/Homatropine Methylb (Hycodan Liq) 5 ml PO Q6H PRN PRN Reason: COUGH Heparin Sodium/Dextrose (Heparin/D5w 25,000 U/250 Ml) 25,000 unit in 250 mls @ 6 mls/hr IV.CONT TITRATE PRN; Protocol PRN Reason: Per Protocol Last Admin: 04/18/18 06:07 Dose: 800 units/hr, 8 mls/hr Sodium Chloride (Ns Inj) 1,000 mls @ 42 mls/hr IV.CONT .[id number] [facility] Last Admin: 04/17/18 18:27 Dose: Not Given Azithromycin 250 mg/ Sodium (Chloride) 250 mls @ 250 mls/hr IV.SIG Q24H [facility] Last Infusion: 04/18/18 08:55 Dose: Infused Ceftriaxone Sodium 1,000 mg/ (Sodium Chloride) 100 mls @ 200 mls/hr IV.SIG Q24H [facility], [facility] Last Infusion: 04/18/18 09:53 Dose: Infused Sodium Chloride (Ns Inj) 1,000 mls @ 100 mls/hr IV.CONT .Q10H [facility] Last Admin: 04/18/18 11:23 Dose: Not Given Methylprednisolone Sodium Succinate (Solumedrol Inj) 50 mg IV.PUSH ONCE ONE Stop: 04/19/18 09:01 Metoprolol Tartrate (Lopressor) 25 mg PO BID [facility] Last Admin: 04/18/18 08:53 Dose: 25 mg Nitroglycerin (Nitrostat Sl) 0.4 mg SL Q5M PRN PRN Reason: CHEST PAIN Prednisone (Deltasone) 30 mg PO DAILY [facility], [facility]1983 Last Admin: 04/18/18 08:55 Dose: 30 mg Sodium Chloride (Ns Flush) 2 ml IV.FLUSH BID [facility] Last Admin: 04/18/18 08:53 Dose: Not Given Sodium Chloride (Ns Flush) 2 ml IV.FLUSH PRN PRN PRN Reason: FLUSH AFTER USING IV ACCESS Topiramate (Topamax) 50 mg PO BID [facility] Last Admin: 04/18/18 08:52 Dose: 50 mg Allergies Allergy/AdvReac Type Severity Reaction Status Date / Time codeine Allergy Severe VOMITING Unverified 01/06/17 19:02 penicillin G Allergy Severe Hives Unverified 04/16/18 14:47 Sulfa (Sulfonamide Allergy Severe Hives Unverified 04/16/18 14:47 Antibiotics) thiopental Allergy Severe Respiratory Unverified 04/16/18 14:47 Failure diatrizoate meglumine Allergy Intermediate NAUSEA/VOMI Unverified 01/06/17 19:02 TING gadobenic acid Allergy Intermediate NAUSEA/VOMI Unverified 01/06/17 19:02 TING gadodiamide Allergy Intermediate NAUSEA/VOMI Unverified 01/06/17 19:02 TING gadoteridol Allergy Intermediate NAUSEA/VOMI Unverified 01/06/17 19:02 TING iodixanol Allergy Intermediate NAUSEA/VOMI Unverified 01/06/17 19:02 TING iohexol Allergy Intermediate NAUSEA/VOMI Unverified 01/06/17 19:02 TING ciprofloxacin AdvReac Intermediate Hives Unverified 04/16/18 14:47 TAPE Allergy Severe Blister Uncoded 04/16/18 14:47 Home Medications Medication Instructions Recorded Confirmed Type Cholesterol Med 04/16/18 History bupropion HCl [Wellbutrin XL] 150 mg PO QPM 04/16/18 04/16/18 History cranberry 04/16/18 History nadolol 40 mg PO DIRECTED 04/16/18 04/16/18 History sumatriptan succinate [Imitrex] 04/16/18 History topiramate [Topamax] 50 mg PO BID 04/16/18 04/16/18 History Physical Exam Vital signs: Vital Signs 04/17/18 15:00 04/17/18 16:00 04/17/18 17:00 Temperature 97.4 F L Pulse Rate 81 83 87 Respiratory Rate 16 Blood Pressure 95/51 L Pulse Oximetry 96 04/17/18 18:00 04/17/18 19:00 04/17/18 20:00 Temperature 98.9 F Pulse Rate 91 H 92 H 89 Respiratory Rate 16 Blood Pressure 101/54 L Pulse Oximetry 97 04/17/18 21:00 04/17/18 22:00 04/17/18 23:00 Temperature Pulse Rate 89 80 81 Respiratory Rate Blood Pressure Pulse Oximetry 04/18/18 00:00 04/18/18 01:00 04/18/18 02:00 Temperature 98.8 F Pulse Rate 85 82 73 Respiratory Rate 16 Blood Pressure 101/54 L Pulse Oximetry 93 L 04/18/18 03:00 04/18/18 04:00 04/18/18 05:00 Temperature 97.6 F Pulse Rate 71 83 79 Respiratory Rate 16 Blood Pressure 108/56 L Pulse Oximetry 95 04/18/18 06:00 04/18/18 07:00 04/18/18 08:00 Temperature Pulse Rate 69 74 77 Respiratory Rate Blood Pressure Pulse Oximetry 04/18/18 09:00 04/18/18 10:00 Temperature Pulse Rate 74 76 Respiratory Rate Blood Pressure Pulse Oximetry Intake & Output 04/17/18 04/18/18 04/18/18 18:59 06:59 18:59 Intake Total 2650 / 2650 1730 / 1730 1350 / 1350 Output Total 600 / 600 Balance 2650 / 2650 1130 / 1130 1350 / 1350 Weight 58 kg Intake: IV 1450 / 1450 1250 / 1250 1350 / 1350 Heparin/D5W 25,000 U/250 mL 25, 250 / 250 000 unit In 250 ml @ Per Protocol 6 mls/hr IV.CONT TITRATE PRN Rx#:[id number] NS Inj 1,000 ML @ 100 mls/hr IV 1000 / 1000 1000 / 1000 1000 / 1000 .CONT .Q10H [facility] Rx#:[id number] Azithromycin Inj 250 MG In NS 250 / 250 250 / 250 Inj 250 ML @ 250 mls/hr IV.SIG Q24H [facility] Rx#:[id number] Rocephin Inj 1,000 MG In NS Inj 100 / 100 100 / 100 100 ML @ 200 mls/hr IV.SIG Q24H [facility] Rx#:[id number] Oral 1200 / 1200 480 / 480 Output: Urine 600 / 600 Other: # Voids 4 Date of Last Bowel Movement 04/17/18 04/17/18 # Bowel Movements 1 0 - Constitutional no acute distress - Routine HEENT Exam Head: Present: normocephalic - Routine Neck Exam Present: supple - Routine Respiratory Exam Present: CTA bilaterally - Routine Cardiovascular Exam Present: S1, S2 - Routine Abdominal Exam Present: soft - Routine Extremities Exam Comments: no sarthak Results 04/18/18 04:10 04/18/18 04:10 Cardiac Enzymes 04/16/18 04/16/18 04/16/18 Range/Units 16:30 16:38 20:48 AST 42 H (15-37) U/L Troponin I Less than 0.02 L Less than 0.02 L (0.02-0.05) ng/mL 04/17/18 Range/Units 03:36 AST (15-37) U/L Troponin I Less than 0.02 L (0.02-0.05) ng/mL Coagulation 04/16/18 04/17/18 04/17/18 Range/Units 16:30 01:34 09:19 PT 11.3 (9.8-11.6) sec APTT 32.6 H 37.8 H 46.9 H D (23.4-31.7) sec 04/17/18 04/18/18 Range/Units 15:00 04:10 PT (9.8-11.6) sec APTT 41.7 H 39.7 H (23.4-31.7) sec Lipids 04/18/18 Range/Units 04:10 Triglycerides 87 (42-150) mg/dL Cholesterol 121 (120-200) mg/dL HDL Cholesterol 23.9 L (40.0-60.0) mg/dL Cholesterol/HDL Ratio 5.06 Ratio CBC 04/16/18 04/17/18 04/18/18 Range/Units 16:38 03:36 04:10 WBC 12.0 H 6.6 15.5 H (4.0-11.0) th/mm3 RBC 3.94 L 3.48 L 3.05 L (4.00-5.30) mil/mm3 Hgb 12.5 11.5 L 10.1 L (11.6-15.3) gm/dL Hct 38.2 34.5 L 30.3 L (35.0-46.0) % Plt Count 284 229 252 (150-450) th/mm3 Neut # (Auto) 9.8 H 14.0 H (1.8-7.7) th/mm3 Lymph # (Auto) 0.9 L 0.8 L (1.0-4.8) th/mm3 [place] # (Auto) 0.9 0.6 (0.0-0.9) th/mm3 Eos # (Auto) 0.1 0.0 (0.0-0.4) th/mm3 Baso # (Auto) 0.3 H 0.0 (0.0-0.2) th/mm3 Comprehensive Metabolic Panel 04/16/18 04/18/18 Range/Units 16:38 04:10 Sodium 136 145 (136-145) meq/L Potassium 3.2 L 3.4 L (3.5-5.1) meq/L Chloride 99 114 H D (98-107) meq/L Carbon Dioxide 27.9 23.1 (21.0-32.0) meq/L BUN 10 22 H (7-18) mg/dL Creatinine 0.87 0.82 (0.50-1.00) mg/dL Calcium 8.9 8.3 L (8.5-10.1) mg/dL AST 42 H (15-37) U/L ALT 50 (10-53) U/L Alkaline Phosphatase 173 H (45-117) U/L Total Protein 7.7 (6.4-8.2) g/dL Albumin 3.0 L (3.4-5.0) g/dL Intake and Output 04/17/18 04/18/18 04/18/18 22:59 06:59 14:59 Intake Total 3200 / 3200 730 / 730 1350 / 1350 Output Total 600 / 600 Balance 3200 / 3200 130 / 130 1350 / 1350 Intake: IV 1999 250 / 250 1350 / 1350 Heparin/D5W 25,000 U/250 mL 25, 250 / 250 000 unit In 250 ml @ Per Protocol 6 mls/hr IV.CONT TITRATE PRN Rx#:[id number] NS Inj 1,000 ML @ 100 mls/hr IV 1999 1000 / 1000 .CONT .Q10H [facility] Rx#:[id number] Azithromycin Inj 250 MG In NS 250 / 250 Inj 250 ML @ 250 mls/hr IV.SIG Q24H [facility] Rx#:[id number] Rocephin Inj 1,000 MG In NS Inj 100 / 100 100 ML @ 200 mls/hr IV.SIG Q24H [facility] Rx#:[id number] Oral 1200 / 1200 480 / 480 Output: Urine 600 / 600 Other: # Voids 4 Date of Last Bowel Movement 04/17/18 04/17/18 # Bowel Movements 1 0 Weight 58 kg - Imaging and Cardiology Imaging: Impressions Chest X-Ray 04/16/18 16:29 CONCLUSION: No acute cardiopulmonary disease. There is no evidence of pneumonia. Assessment and Plan - Assessment (1) Unstable angina Code(s): I20.0 - Unstable angina Status: Acute (2) Abnormal EKG Code(s): R94.31 - Abnormal electrocardiogram [ECG] [EKG] Status: Acute - Plan 1.) [place] - continue aspirin, iv heparin, recheck thompson aleman 04/19/18; order given to nurse to give 60 mg iv solumedrol now and in am
[2018-04-18 14:57] VITALS: RESP 18
--- NOTE | 2018-04-18 17:30 | P.PN ---
Subjective Interval history: NOT SeEn Physical Exam Vital signs: Vital Signs 04/17/18 18:00 04/17/18 19:00 04/17/18 20:00 Temperature 98.9 F Pulse Rate 91 H 92 H 89 Respiratory Rate 16 Blood Pressure 101/54 L Pulse Oximetry 97 04/17/18 21:00 04/17/18 22:00 04/17/18 23:00 Temperature Pulse Rate 89 80 81 Respiratory Rate Blood Pressure Pulse Oximetry 04/18/18 00:00 04/18/18 01:00 04/18/18 02:00 Temperature 98.8 F Pulse Rate 85 82 73 Respiratory Rate 16 Blood Pressure 101/54 L Pulse Oximetry 93 L 04/18/18 03:00 04/18/18 04:00 04/18/18 05:00 Temperature 97.6 F Pulse Rate 71 83 79 Respiratory Rate 16 Blood Pressure 108/56 L Pulse Oximetry 95 04/18/18 06:00 04/18/18 07:00 04/18/18 08:00 Temperature 98.5 F Pulse Rate 69 74 74 Respiratory Rate 18 Blood Pressure 98/59 L Pulse Oximetry 96 04/18/18 09:00 04/18/18 10:00 04/18/18 11:00 Temperature Pulse Rate 74 76 84 Respiratory Rate Blood Pressure Pulse Oximetry 04/18/18 12:00 04/18/18 13:00 04/18/18 14:00 Temperature 98.7 F Pulse Rate 77 78 81 Respiratory Rate 18 Blood Pressure 100/56 L Pulse Oximetry 97 04/18/18 15:00 04/18/18 16:00 04/18/18 17:00 Temperature 98.7 F Pulse Rate 75 72 81 Respiratory Rate 18 Blood Pressure 106/57 L Pulse Oximetry 97 Intake & Output 04/17/18 04/18/18 04/18/18 18:59 06:59 18:59 Intake Total 2650 / 2650 1730 / 1730 1350 / 1350 Output Total 600 / 600 Balance 2650 / 2650 1130 / 1130 1350 / 1350 Weight 58 kg Intake: IV 1450 / 1450 1250 / 1250 1350 / 1350 Heparin/D5W 25,000 U/250 mL 25, 250 / 250 000 unit In 250 ml @ Per Protocol 6 mls/hr IV.CONT TITRATE PRN Rx#:[id number] NS Inj 1,000 ML @ 100 mls/hr IV 1000 / 1000 1000 / 1000 1000 / 1000 .CONT .Q10H [facility] Rx#:[id number] Azithromycin Inj 250 MG In NS 250 / 250 250 / 250 Inj 250 ML @ 250 mls/hr IV.SIG Q24H [facility] Rx#:[id number] Rocephin Inj 1,000 MG In NS Inj 100 / 100 100 / 100 100 ML @ 200 mls/hr IV.SIG Q24H [facility] Rx#:[id number] Oral 1200 / 1200 480 / 480 Output: Urine 600 / 600 Other: # Voids 4 Date of Last Bowel Movement 04/17/18 04/17/18 04/18/18 # Bowel Movements 1 0 Narrative: .67yo thin w f aaox3 nad heart s1s2 reg lungs clear bases w anterior wheeze occasional good air movment abd soft nondt pos bs ext no edema no calf tenderness Results - Labs CBC & Chem 7: 04/18/18 04:10 04/18/18 04:10 Laboratory Results - last 24 hr 04/18/18 04/18/18 04/18/18 04:10 04:10 04:10 WBC 15.5 H RBC 3.05 L Hgb 10.1 L Hct 30.3 L MCV 99.3 MCH 33.1 MCHC 33.3 RDW 13.1 Plt Count 252 MPV 9.0 Neut % (Auto) 90.4 H Lymph % (Auto) 5.4 L Ransom % (Auto) 4.0 Eos % (Auto) 0.0 Baso % (Auto) 0.2 Neut # (Auto) 14.0 H Lymph # (Auto) 0.8 L Ransom # (Auto) 0.6 Eos # (Auto) 0.0 Baso # (Auto) 0.0 WBC Differential . Differential Comment Auto diff final APTT 39.7 H Sodium 145 Potassium 3.4 L Chloride 114 H D Carbon Dioxide 23.1 Anion Gap 8 BUN 22 H Creatinine 0.82 Estimated GFR 69 L Random Glucose 126 H Calcium 8.3 L Magnesium 2.0 Troponin I Triglycerides 87 Cholesterol 121 LDL Cholesterol, Calc 80 HDL Cholesterol 23.9 L Cholesterol/HDL Ratio 5.06 04/18/18 16:16 WBC RBC Hgb Hct MCV MCH MCHC RDW Plt Count MPV Neut % (Auto) Lymph % (Auto) Ransom % (Auto) Eos % (Auto) Baso % (Auto) Neut # (Auto) Lymph # (Auto) Ransom # (Auto) Eos # (Auto) Baso # (Auto) WBC Differential Differential Comment APTT Sodium Potassium Chloride Carbon Dioxide Anion Gap BUN Creatinine Estimated GFR Random Glucose Calcium Magnesium Troponin I Less than 0.02 L Triglycerides Cholesterol LDL Cholesterol, Calc HDL Cholesterol Cholesterol/HDL Ratio Microbiology 04/16/18 16:38 Blood - Peripheral Aerobic Blood Culture - Preliminary No growth in 2 days 04/16/18 16:38 Blood - Peripheral Anaerobic Blood Culture - Preliminary No growth in 2 days 04/16/18 16:30 Blood - Peripheral Aerobic Blood Culture - Preliminary No growth in 2 days 04/16/18 16:30 Blood - Peripheral Anaerobic Blood Culture - Preliminary No growth in 2 days - Imaging ITS Impressions Chest X-Ray 04/16/18 16:29 CONCLUSION: No acute cardiopulmonary disease. There is no evidence of pneumonia. Assessment and Plan - Plan ACUTE BRONCHITIS and PNA though cxr is wo visible infiltrate clinically has pulm and upper resp tract infection, fevers and productive cough, cont abx for CAP, pulmonary tx, sputum cultures, influenza swab neg. ASTHMA, chronic intermittent, w acute bronchospasm - cont steroids, patient can not tolerate albuterol but reports doing well w advair , start symbicort and cont symptomatic tx for the cough EKG ABNORMALITY w st depression and now ant lat t wave inversions - concern for ischemic heart disease, no active cp symptoms and no cardiac hx, she is on a heparin gtt, cardiology for cath will change nadolol to metoprolol, cont asa daily cont statin, echo w nml lv function HYPERTHYROIDISM - on nadolol, change to metoprolol, tsh is low, cont bb control, consider tapazole, follow up w endocrine MIGRAINE MORTENSEN - on topamax for prevention and imitrx prn HYPOKALEMIA - replaced, check mg DYSLIPIDEMIA - on statin at home, LDL 80 HX BREAST CA s/p chemo, outpt followup. DVT proph on Heparin
[2018-04-18] MEDS ORDERED: Potassium Bicarbonate 25 MEQ Effervescent Tablet PO ONE (17:36)
[2018-04-18] MEDS: buPROPion 150 MG 12 HR Tablet PO SCH (17:53)
[2018-04-19 01:19] LABS: Hematocrit 30.6 % (35.0-46.0); Hemoglobin 10.4 gm/dL (11.6-15.3); Mean Corpuscular HGB Conc 33.8 % (32.0-36.0); Mean Corpuscular Hemoglobin 33.3 pg (27.0-34.0); Mean Corpuscular Volume 98.4 fL (80.0-100.0); Mean Platelet Volume 8.8 fL (7.0-11.0); Platelet Count 245 th/mm3 (150-450); Red Blood Count 3.11 mil/mm3 (4.00-5.30); Red Cell Distribution Width 13.4 % (11.6-17.2)
[2018-04-19 05:50] LABS: Hematocrit 28.9 % (35.0-46.0); Hemoglobin 9.8 gm/dL (11.6-15.3); Mean Corpuscular HGB Conc 33.9 % (32.0-36.0); Mean Corpuscular Hemoglobin 33.5 pg (27.0-34.0); Mean Corpuscular Volume 98.7 fL (80.0-100.0); Mean Platelet Volume 9.2 fL (7.0-11.0); Platelet Count 245 th/mm3 (150-450); Red Blood Count 2.93 mil/mm3 (4.00-5.30); Red Cell Distribution Width 13.3 % (11.6-17.2); White Blood Count 9.8 th/mm3 (4.0-11.0)
[2018-04-19] MEDS: Benzonatate 100 MG Capsule PO SCH ×2 (06:41→17:39)
[2018-04-19] MEDS ORDERED: MethylPREDNISolone Sod Succinate Inj 125 MG/2 ML Vial IV.PUSH ONE (09:00)
[2018-04-19] MEDS: Aspirin 325 MG Tablet PO SCH ×2 (09:22→11:27)
[2018-04-19] MEDS: predniSONE 10 MG Tablet PO SCH (09:23)
[2018-04-19] MEDS: Topiramate 25 MG Tablet PO SCH (09:23)
[2018-04-19] MEDS: Famotidine 20 MG Tablet PO SCH (09:24)
[2018-04-19] MEDS: Metoprolol Tartrate 25 MG Tablet PO SCH (09:24)
[2018-04-19] MEDS: Budesonide-Formoterol 160/4.5 MCG 6 GM Inhaler INH SCH (09:26)
[2018-04-19] MEDS ORDERED: Melatonin 5 MG Tablet PO PRN (10:20)
--- NOTE | 2018-04-19 10:32 | P.PN ---
Subjective Interval history: Follow-up bronchitis. States she is doing okay denies shortness of breath. Did not sleep well takes melatonin at home. Currently n.p.o. for left heart catheterization Physical Exam Vital signs: Vital Signs 04/18/18 11:00 04/18/18 12:00 04/18/18 13:00 Temperature 98.7 F Pulse Rate 84 77 78 Respiratory Rate 18 Blood Pressure 100/56 L Pulse Oximetry 97 04/18/18 14:00 04/18/18 15:00 04/18/18 16:00 Temperature 98.7 F Pulse Rate 81 75 72 Respiratory Rate 18 Blood Pressure 106/57 L Pulse Oximetry 97 04/18/18 17:00 04/18/18 18:00 04/18/18 19:00 Temperature Pulse Rate 81 92 H 72 Respiratory Rate Blood Pressure Pulse Oximetry 04/18/18 20:00 04/18/18 20:54 04/18/18 21:00 Temperature 97.6 F Pulse Rate 70 75 74 Respiratory Rate 20 Blood Pressure 102/53 L Pulse Oximetry 96 04/18/18 22:00 04/18/18 23:00 04/19/18 00:00 Temperature Pulse Rate 74 76 70 Respiratory Rate Blood Pressure Pulse Oximetry 04/19/18 01:00 04/19/18 01:44 04/19/18 02:00 Temperature 98 F Pulse Rate 70 70 72 Respiratory Rate 18 Blood Pressure 109/64 Pulse Oximetry 96 04/19/18 03:00 04/19/18 04:00 04/19/18 04:42 Temperature 98.2 F Pulse Rate 65 63 63 Respiratory Rate 18 Blood Pressure 118/60 Pulse Oximetry 96 04/19/18 05:00 04/19/18 06:00 Temperature Pulse Rate 65 73 Respiratory Rate Blood Pressure Pulse Oximetry Intake & Output 04/18/18 04/19/18 04/19/18 18:59 06:59 18:59 Intake Total 3600 / 3600 420 / 420 Output Total 700 / 700 1400 / 1400 Balance 2900 / 2900 -980 / -980 Weight 58 kg Intake: IV 2350 / 2350 NS Inj 1,000 ML @ 100 mls/hr IV 2000 / 1999 .CONT .Q10H [facility] Rx#:[id number] Azithromycin Inj 250 MG In NS 250 / 250 Inj 250 ML @ 250 mls/hr IV.SIG Q24H [facility] Rx#:[id number] Rocephin Inj 1,000 MG In NS Inj 100 / 100 100 ML @ 200 mls/hr IV.SIG Q24H [facility] Rx#:[id number] Oral 1250 / 1250 420 / 420 Output: Urine 700 / 700 1400 / 1400 Other: Date of Last Bowel Movement 04/18/18 # Bowel Movements 1 0 Narrative: 67yo thin w f aaox3 nad heart s1s2 reg lungs clear bases w/out wheeze good air movment abd soft nondt pos bs ext no edema no calf tenderness Results - Labs CBC & Chem 7: 04/19/18 04:53 04/18/18 04:10 Laboratory Results - last 24 hr 04/18/18 04/19/18 04/19/18 16:16 00:39 00:39 WBC 11.0 RBC 3.11 L Hgb 10.4 L Hct 30.6 L MCV 98.4 MCH 33.3 MCHC 33.8 RDW 13.4 Plt Count 245 MPV 8.8 APTT Troponin I Less than 0.02 L Less than 0.02 L 04/19/18 04/19/18 04:53 04:53 WBC 9.8 RBC 2.93 L Hgb 9.8 L Hct 28.9 L MCV 98.7 MCH 33.5 MCHC 33.9 RDW 13.3 Plt Count 245 MPV 9.2 APTT 43.4 H Troponin I Microbiology 04/16/18 16:38 Blood - Peripheral Aerobic Blood Culture - Preliminary No growth in 2 days 04/16/18 16:38 Blood - Peripheral Anaerobic Blood Culture - Preliminary No growth in 2 days 04/16/18 16:30 Blood - Peripheral Aerobic Blood Culture - Preliminary No growth in 2 days 04/16/18 16:30 Blood - Peripheral Anaerobic Blood Culture - Preliminary No growth in 2 days - Imaging ITS Impressions Chest X-Ray 04/16/18 16:29 CONCLUSION: No acute cardiopulmonary disease. There is no evidence of pneumonia. - Procedures for [facility] Assessment and Plan - Plan ACUTE BRONCHITIS and PNA though cxr is wo visible infiltrate clinically has pulm and upper resp tract infection, fevers and productive cough, cont abx for CAP, pulmonary tx, sputum cultures, influenza swab neg. stable switch to p.o. antibiotic discontinue Rocephin patient allergic to penicillin ASTHMA, chronic intermittent, w acute bronchospasm - cont steroids, patient can not tolerate albuterol but reports doing well w advair , start symbicort and cont symptomatic tx for the cough. Stable EKG ABNORMALITY w st depression and now ant lat t wave inversions - concern for ischemic heart disease, no active cp symptoms and no cardiac hx, she is on a heparin gtt, cardiology for cath will change nadolol to metoprolol, cont asa daily cont statin, echo w nml lv function HYPERTHYROIDISM - on nadolol, change to metoprolol, tsh is low, cont bb control, consider tapazole, follow up w endocrine. Check FT3 and FT4 MIGRAINE MORTENSEN - on topamax for prevention and imitrx prn (may need to be discontinued pending cardiac catheterization) HYPOKALEMIA - replaced DYSLIPIDEMIA - on statin at home, LDL 80 HX BREAST CA s/p chemo, outpt followup. DVT proph on Heparin Discharge Planning: Possible discharge if negative cardiac catheterization
[2018-04-19 11:20] LABS: Free T4 (Free Thyroxine) 1.65 ng/dL (0.76-1.46); Triiodothyronine (T3) Free 2.31 pg/mL (2.18-3.98)
[2018-04-19] MEDS: Azithromycin Inj 250 MG in Sodium Chlor 0.9% Inj 250 ML IV.SIG SCH (11:27)
[2018-04-19 12:39] VITALS: O2SAT 96
[2018-04-19] MEDS ORDERED: Heparin/NS PF Inj 1,000 ML ONE (13:01)
[2018-04-19] MEDS ORDERED: fentaNYL Citrate Inj 100 MCG/2 ML Ampul ONE (13:01)
[2018-04-19] MEDS ORDERED: MethylPREDNISolone Sod Succinate Inj 125 MG/2 ML Vial ONE (13:02)
[2018-04-19] MEDS ORDERED: Lidocaine PF 1% Inj 30 ML Vial ONE (13:02)
[2018-04-19] MEDS ORDERED: Famotidine PF Inj 20 MG/2 ML Vial ONE (13:02)
--- NOTE | 2018-04-19 13:41 | CATHPROC ---
Casetext HIS Report Study Information Study Number Admission Scheduled Start Study Start [id number] Apr 17 2018 4:48AM 04/19/2018 Apr 19 2018 12:31PM [place] Service Cath Endovascular Study Admit Source Facility Department Emergency department [facility] - Cash Manager Physician and Clinical Staff Initial Roland Mccloud Maritime Pilot Re Rudolph,WADE Recorder Luciano Parra,RT(R) Scrub Jarad Vogel,RT(R) Procedures Performed Procedure Location (Site) Vessel Name Coronary Angiograms LCA Left Coronary Coronary Angiograms RCA Right Coronary L Heart Cath LV Gram-hand inj. LV LV Ventricle Equipment Time Preassembler And Inspector Description Size Mfg Part Number Used/Scraped TRANSDUCER, TRUWAVE [id number] 12:34 WORLEY ISAACS * Used W/STOCKCOCK *[id number] *[id number] *[id number] 12:34 [employer] BLANKET,WARM AIR CCL * Used *[id number] 12:34 [employer] PACK, CCL CUSTOM * Used *[id number] 12:34 [employer] PACER PEN, SKIN DUAL W/ RULER * Used *[id number] 12:34 Semmx WIRE, 3MMJ .035 180CM 180CM Used *[id number] 12:34 NAMIC MANIFOLD, 4 PORT * Used *[id number] 12:34 [employer]ED OMNIPAQUE, 350 MG, 150ML 150ML [id number] 12:34 TERUMO MEDICAL SHEATH, FR4 TERUMO (10CM) FR 4 Used *[id number] History: Current Medications Medication Dosage/Unit Route Frequency Last Date/Time Taken ASA Statins (any) Beta Genny History: Allergies Allergy Reaction Sulfa (Sulfonamide Antibiotics) Hives iohexol NAUSEA/VOMITING codeine VOMITING diatrizoate meglumine NAUSEA/VOMITING ciprofloxacin Hives gadoteridol NAUSEA/VOMITING gadodiamide NAUSEA/VOMITING thiopental Respiratory Failure penicillin G Hives iodixanol NAUSEA/VOMITING gadobenic acid NAUSEA/VOMITING TAPE Blister History: Risk Factors Family History of Hypertension Dyslipidemia Previous WI Previous Heart Failure Premature CAD Yes Yes Yes No No Prior Valve Prior PCI Prior CABG Surgery No No No Cerebrovascular Peripheral Artery Chronic Lung On Dialysis Diabetes Disease Disease Disease No No No No No History: Stress Tests Stress or Imaging Studies Performed No History: Other Disease Selection Items Cancer HTN History: Other Current Smoker Method Packs a Day Years Used Pack Years No Cigarettes 1 47 47 Labs Hgb (g/dl) Hct (%) RBC (MIL/MM3) WBC (l/cumm) Platelets (thousands) 11.60-17.00 35.00-51.00 4.00-5.90 4.00-11.00 150.00-450.00 10.4 30.6 3.1 11 245 Glucose (mg/dl) BUN (mg/dl) Creatinine (mg/dl) BUN:Creatinine (1:x) 74.00-106.00 7.00-18.00 0.50-1.30 10.00-20.00 126 22 0.8 27.5 Na (meq/l) K (meq/l) Cl (meq/l) CO2 (mmol/L) Ca (mg/dl) 136.00-145.00 3.50-5.10 98.00-107.00 21.00-32.00 8.50-10.10 145 3.4 114 23.1 8.3 PTT (sec) 24.30-30.10 43.4 Troponin I (ng/ml) CPK (u/l) CPK-MB (ng/ML) 0.02-0.05 26.00-308.00 0.50-3.60 0.02 96 Not Drawn Medication Medication Total Dose (Bolus/Oral) Medication Total Dosage/Unit 1% XYLOCAINE 20 mL FENTANYL 25 mcg PEPCID 20 mg SOLU-MEDROL 60 mg VERSED 1 mg Medications (Bolus/Oral) Medication Time Given Dosage/Unit Administered By Reason SOLU-MEDROL 04/19/2018 1:09:50 PM 60 mg Re Rudolph 60 mg SOLU-MEDROL given in lab by Re Rudolph, WADE in Right Antecubital via Peripheral IV. PEPCID 04/19/2018 1:16:49 PM 20 mg Re Rudolph 20 mg PEPCID given in lab by Re Rudolph, RN in Right Antecubital via Peripheral IV. VERSED 04/19/2018 1:20:10 PM 1 mg Re Rudolph 1 mg VERSED given in lab by Re Rudolph, RN in Right Antecubital via Peripheral IV. FENTANYL 04/19/2018 1:20:46 PM 25 mcg Re Rudolph 25 mcg FENTANYL given in lab by Re Rudolph, RN in Right Antecubital via Peripheral IV. 1% XYLOCAINE 04/19/2018 1:22:05 PM 20 mL Re Rudolph 20 mL 1% XYLOCAINE given in lab by Re Rudolph, RN in Right Groin via Subcutaneous. Medication (Drip) Medication Time Given Dosage/Unit Concentration/Unit Diluent (ml) Solution 04/19/2018 12:55:26 IV Solutions 0 mL (IV) 500 NaCl .9 PM IV Solutions given in lab by Re Rudolph, RN in Right Antecubital via Peripheral IV. Pump/Drip Fl ow = 20 ml/hr using NaCl .9. Initial Case Assessment Cardiovascular HR Rhythm NIBP Chest Pain 64 Sinus 146/75 0 Edema Present Skin color Skin None Normal Warm Dry Circulatory - Right Pulses Dorsalis Pedis Femoral 2 3 Scale (0,1,2,3,4,d) Circulatory - Left Pulses Dorsalis Pedis Femoral 2 3 Scale (0,1,2,3,4,d) Neurological State Oriented to time-place- Alert Moves all extremities person Respiration - General Respiration Rate SpO2 (%) O2 (lpm) (B/min) 18 98 0 Final Case Assessment Cardiovascular HR Rhythm NIBP Chest Pain 94 Sinus 133/69 0 Edema Present Skin color Skin None Normal Warm Dry Circulatory - Right Pulses Dorsalis Pedis Femoral 2 3 Scale (0,1,2,3,4,d) Circulatory - Left Pulses Dorsalis Pedis Femoral 2 3 Scale (0,1,2,3,4,d) Neurological State Oriented to time-place- Alert Moves all extremities person Respiration - General Respiration Rate SpO2 (%) O2 (lpm) (B/min) 18 94 0 Chronological Log Time Study Chronological Log 12:52:00 Patient arrived via Bed. 12:55:11 Patient Name, D.O.B, / Armband Verified By R.N. 12:55:12 Consent signed by the physician and the patient and verified by the Cash Manager staff. 12:55:12 Pre-op and post- op instructions given; patient acknowledges understanding of instructions. 12:55:13 Verbal Stimulation=2 Physical Stimulation=2 Airway=2 Respiration=2 TOTAL=8. (0=absent, 1=li mited, 2=present) 12:55:14 Presedation assessment performed by Cash Manager RN. 12:55:19 Patient has been NPO for More than 6Hrs. 12:55:20 Skin Breakdown- none per patient. 12:55:22 Patient Warmer Placed on the Table. 12:55:24 Annemarie Prominences Protected 12:55:25 A # 20 IV was noted in the Antecubital (right). Grade = 0 IV Solutions given in lab by Re Rudolph, RN in Right Antecubital via Peripheral IV. Pump/D rip Flow = 20 ml/hr 12:55:26 using NaCl .9. 12:55:28 History and physical on the chart or being dictated. Assessment: Initial Case, HR=64 BPM, Rhythm=Sinus, PWPH=934/75 mmhg, Chest Pain=0, Edema=None, Color=Normal, Skin = Warm, Dry Right Pulses: Ernie Ped=2, Femoral=3 12:55:29 Left Pulses: Ernie Ped=2, Femoral=3 Neurological: State=Alert, Ox3, SORIA Respiration: Resp=18 B/min, SpO2=98 %, O2=0 lpm Vitals capture started with the following parameters, Patient=Adult, Interval=5 min, Initial Pr lxexnx=658 mmHg, 13:00:05 Deflation Rate=5 mmHg, Cuff placed on Left Arm 13:00:45 HR=60 bpm, HAIT=382/75 mmhg, Resp=22 B/min, Pain=0, Viktor=10, Baxter=2 13:02:18 Bilateral groins prepped with 2% chlorhexidine, and draped after a 3 minute waiting time. 13:03:09 A # 20 IV was noted in the Forearm (right). Grade = 0 13:05:44 HR=52 bpm, EDPF=239/71 mmhg, SpO2=98.0 %, Resp=13 B/min, Pain=0, Viktor=10, Baxter=2 13:06:55 Pressure channel 2 zeroed. 13:09:50 60 mg SOLU-MEDROL given in lab by Re Rudolph, RN in Right Antecubital via Peripheral I V. 13:10:34 Reference ECG taken 13:10:41 HR=60 bpm, HOEU=895/71 mmhg, SpO2=96.0 %, Resp=17 B/min, Pain=0, Viktor=10, Baxter=2 13:15:09 MD responded 13:15:40 HR=65 bpm, ZYAO=016/79 mmhg, SpO2=96.0 %, Resp=29 B/min, Pain=0, Viktor=10, Baxter=2 13:16:49 20 mg PEPCID given in lab by Re Rudolph, RN in Right Antecubital via Peripheral IV. 13:19:27 MD arrived. 13:20:10 1 mg VERSED given in lab by Re Rudolph, RN in Right Antecubital via Peripheral IV. 13:20:41 HR=62 bpm, ESXT=109/78 mmhg, SpO2=97.0 %, Resp=17 B/min, Pain=0, Viktor=10, Baxter=2 13:20:46 25 mcg FENTANYL given in lab by Re Rudolph, WADE in Right Antecubital via Peripheral IV. Time Out. Correct patient, correct procedure, correct physician, labs, allergies, and equipment verified with clinical laboratory service teacher 13:21:34 team present. Fire risk assesment completed (see hard stop sheet for coding). Time Out Conc urred by MD and individual staff in procedure. 13:22:05 20 mL 1% XYLOCAINE given in lab by Re Rudolph, WADE in Right Groin via Subcutaneous. 13:22:09 Case Start 13:23:03 Access site was Right Femoral Artery. 13:23:09 A SHEATH, FR4 TERUMO (10CM) FR 4 was advanced into the Fem Art (right) using the Percutaneo us technique. 13:23:21 Activated Clotting Time Drawn A JR 4.0 INFINITI CATHETER FR 4 was advanced over a wire. OMNIPAQUE, 350 MG, 150ML 150ML was us ed for 13:23:30 injections. Recorded Pressure: LV, HR=64, Condition=Condition 1 13:24:53 (Left Ventricle) LV 137/8/14 13:25:00 The LV was manually injected with 6 cc's and visualized. OMNIPAQUE, 350 MG, 150ML 150ML use d. Recorded Pressure: LV, Ao, HR=60, Condition=Condition 1 13:25:02 (Left Ventricle) LV ?/?/?, (Aorta) Ao 97/21/52 Recorded Pressure: Ao, HR=61, Condition=Condition 1 13:25:15 (Aorta) Ao 115/80/98 13:25:36 The RCA was injected and visualized at various angles. OMNIPAQUE, 350 MG, 150ML 150ML used . 13:25:42 HR=61 bpm, QHFM=991/72 mmhg, SpO2=95.0 %, Resp=18 B/min, Pain=0, Viktor=10, Baxter=2 13:26:05 Catheter was removed 13:26:16 ACT (Normal Range 90-180) = 128 A JL 4.0 INFINITI CATHETER FR 5 was advanced over a wire. OMNIPAQUE, 350 MG, 150ML 150ML was us ed for 13:27:03 injections. 13:27:08 The LCA was injected and visualized at various angles. OMNIPAQUE, 350 MG, 150ML 150ML used . 13:27:52 Catheter was removed 13:28:35 Case End (Physician broke scrub) 13:29:09 Sheath removed; pressure applied to access site. 13:29:18 No case complications noted. 13:29:21 Cine recording checked. 13:30:06 Bedside Report will be given. 13:30:42 HR=65 bpm, SSPG=071/69 mmhg, SpO2=94.0 %, Resp=15 B/min, Pain=0, Viktor=10, Baxter=2 13:33:16 A Left Heart Cath was performed. Assessment: Final Case, HR=94 BPM, Rhythm=Sinus, SLPU=587/69 mmhg, Chest Pain=0, Edema=None, Color=Normal, Skin = Warm, Dry Right Pulses: Ernie Ped=2, Femoral=3 13:33:34 Left Pulses: Ernie Ped=2, Femoral=3 Neurological: State=Alert, Ox3, SORIA Respiration: Resp=18 B/min, SpO2=94 %, O2=0 lpm 13:35:43 HR=63 bpm, JRIO=116/69 mmhg, SpO2=93.0 %, Resp=17 B/min, Pain=0, Viktor=10, Baxter=2 13:40:44 GQWA=247/62 mmhg, SpO2=91.0 %, Pain=0, Viktor=10, Baxter=2 13:40:48 Sterile dressing applied to site 13:40:55 Vitals capture stopped. End Study - Contrast Media Used In Study Contrast Total Opened (mL) Total Used (mL) Total Wasted (mL) Omnipaque 150 40 110 End Study - Maximum Contrast Load Max Contrast Load (mL) 362.5 End Study - Radiation Exposure Fluoro Time (minutes) 1.1 End Study - Patient Disposition Complications Transferred To Interventional Outcome No Telemetry Bed No attempt made
--- NOTE | 2018-04-19 15:25 | MA ---
cc: Roland Navarrete MD DATE: 04/19/2018 PROCEDURE PERFORMED: Left hear catheterization, left ventriculography, coronary angiography. INDICATIONS: Resting 1 mm - [address] segment depression in lead V2, 3, 4, 5, 6, II, III, aVF with indigestion-like chest pain radiating from the right upper epigastric area into the substernal chest area at rest, unstable angina, [place] [employer] Class IV angina, multiple cardiac risk factors, former smoker. PROCEDURE: The patient was brought to the cardiac catheterization lab and prepped and draped in the usual sterile fashion; 10 mL of 1% lidocaine was used to locally anesthetic the common femoral artery. A 4-Stateless sheath was placed in right common femoral artery. A 4-Stateless JR-4 and JL-4 catheter were used to perform left and right coronary angiography, left ventriculography. FINDINGS: LV pressure is 135/10-12, ejection fraction 60%. Right coronary artery is large and dominant with no significant disease angiographically. Left main coronary artery has no significant disease angiographically. Left circumflex vessel has minimal luminal irregularities in the proximal segment at the 5%-10% angiographically. First obtuse marginal vessel was a large vessel, approximately 3 mm reference vessel diameter; bifurcates in the proximal mid segment. Both branched of the bifurcation are 1.5 mm vessels with no focal segmental stenosis. The remainder of the AV groove left circumflex vessel is a small ____ tapering to a 1.5 mm vessel. No significant obstructive disease. LAD is transapical, tortuous in the distal segment, but no significant disease angiographically. First diagonal artery is a small 1 mm vessel with no significant disease angiographically. CONCLUSION: 1. Angiographically mild one-vessel coronary artery disease in a right dominant system. 2. Normal left ventricular systolic function with ejection fraction 60%. 3. Recommend medical management of coronary disease, risk factor modification and workup of noncardiac chest pain. Roland Navarrete MD AWC/minesh/val , 01:41 PM , 01:48 PM
--- NOTE | 2018-04-19 16:36 | P.DS ---
Date of admission: 04/17/18 04:48 Primary care physician: Jeannette Alexander MD Brief History from admission: Mrs. Lyn is a 67-year-old female with a history of hyperthyroidism, breast cancer tx with chemo 20 yrs ago (no radiation), and asthma who presented to the emergency room in [place] complaining of fever, productive cough with green to thick yellow sputum, and congestion ongoing for a week. She had an abnormal EKG and was admitted to the [facility] for observation but after discussing the EKG changes with Dr. Navarrete, the quality systems engineer on-call, Dr. Saeed decided to transfer the patient to [facility] for further cardiac evaluation. The patient is seen shortly after arrival from [place]. She reports that about two weeks ago, she developed right chest discomfort/tightness with difficulty taking a deep breath present at all times. She said she'd felt similar symptoms from asthma exacerbations. Symptoms weren't exertional. One week ago, her symptoms started to become accompanied by fever up to tmax 102.6 with productive cough with thick discolored sputum. She states that she never had any chest pain or overt shortness of breath. She has been having night sweats. She reports that several family members have cardiac disease. Her father at age 65 form heart problems. 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 DS: Medications - Discharge Medications Prescriptions: azithromycin [Zithromax] 250 mg PO DAILY #2 tab benzonatate [Tessalon Perles] 200 mg PO Q8H #21 cap budesonide-formoterol [Symbicort] 2 puff INH BID #1 g prednisone 30 mg PO DAILY #12 tab DS: Summary Hospital Course: ACUTE BRONCHITIS and PNA though cxr is wo visible infiltrate clinically has pulm and upper resp tract infection, fevers and productive cough, cont abx for CAP, pulmonary tx, sputum cultures, influenza swab neg. stable switch to p.o. antibiotic discontinue Rocephin patient allergic to penicillin ASTHMA, chronic intermittent, w acute bronchospasm - cont steroids, patient can not tolerate albuterol but reports doing well w advair , start symbicort and cont symptomatic tx for the cough. Stable EKG ABNORMALITY w st depression and now ant lat t wave inversions - concern for ischemic heart disease, no active cp symptoms and no cardiac hx. Cardiac cath negative discontinue heparin drip echo w nml lv function HYPERTHYROIDISM - on nadolol tsh is low, cont bb control, consider tapazole, follow up w endocrine. Check FT3 and FT4 MIGRAINE MORTENSEN - on topamax for prevention and imitrx prn HYPOKALEMIA - replaced DYSLIPIDEMIA - on statin at home, LDL 80 HX BREAST CA s/p chemo, outpt followup. DVT proph on Heparin - Time Spent with Patient Total time spent providing and/or coordinating discharge services: Greater than 30 minutes - Quality: VTE Deep Vein Thrombosis/Pulmonary Embolism Present on Admission: No Exam Vital signs: Vital Signs 04/18/18 17:00 04/18/18 18:00 04/18/18 19:00 Temperature Pulse Rate 81 92 H 72 Respiratory Rate Blood Pressure Pulse Oximetry 04/18/18 20:00 04/18/18 20:54 04/18/18 21:00 Temperature 97.6 F Pulse Rate 70 75 74 Respiratory Rate 20 Blood Pressure 102/53 L Pulse Oximetry 96 04/18/18 22:00 04/18/18 23:00 04/19/18 00:00 Temperature Pulse Rate 74 76 70 Respiratory Rate Blood Pressure Pulse Oximetry 04/19/18 01:00 04/19/18 01:44 04/19/18 02:00 Temperature 98 F Pulse Rate 70 70 72 Respiratory Rate 18 Blood Pressure 109/64 Pulse Oximetry 96 04/19/18 03:00 04/19/18 04:00 04/19/18 04:42 Temperature 98.2 F Pulse Rate 65 63 63 Respiratory Rate 18 Blood Pressure 118/60 Pulse Oximetry 96 04/19/18 05:00 04/19/18 06:00 04/19/18 07:00 Temperature Pulse Rate 65 73 64 Respiratory Rate Blood Pressure Pulse Oximetry 04/19/18 08:00 04/19/18 09:00 04/19/18 10:00 Temperature 97.6 F Pulse Rate 60 60 70 Respiratory Rate 18 Blood Pressure 127/66 Pulse Oximetry 95 04/19/18 11:00 04/19/18 12:00 Temperature 98.5 F Pulse Rate 59 L 82 Respiratory Rate 18 Blood Pressure 138/65 Pulse Oximetry 96 Intake & Output 04/18/18 04/19/18 04/19/18 18:59 06:59 18:59 Intake Total 3600 / 3600 420 / 420 200 / 200 Output Total 700 / 700 1400 / 1400 Balance 2900 / 2900 -980 / -980 200 / 200 Weight 58 kg Intake: IV 2350 / 2350 NS Inj 1,000 ML @ 100 mls/hr IV 1999 / 1999 .CONT .Q10H [facility] Rx#:[id number] Azithromycin Inj 250 MG In NS 250 / 250 Inj 250 ML @ 250 mls/hr IV.SIG Q24H [facility] Rx#:[id number] Rocephin Inj 1,000 MG In NS Inj 100 / 100 100 ML @ 200 mls/hr IV.SIG Q24H [facility] Rx#:[id number] Oral 1250 / 1250 420 / 420 Anesthesia Amount 200 / 200 Output: Urine 700 / 700 1400 / 1400 Other: Date of Last Bowel Movement 04/18/18 04/18/18 # Bowel Movements 1 0 Narrative: 67yo thin w f aaox3 nad heart s1s2 reg lungs clear bases w/out wheeze good air movment abd soft nondt pos bs ext no edema no calf tenderness Results Procedures completed during hospitalization: for [facility] Labs on day of discharge: Labs from last 24 hours 04/19/18 04/19/18 04/19/18 04:53 04:53 00:39 WBC 9.8 RBC 2.93 L Hgb 9.8 L Hct 28.9 L MCV 98.7 MCH 33.5 MCHC 33.9 RDW 13.3 Plt Count 245 MPV 9.2 APTT 43.4 H Troponin I Free T4 1.65 H Free T3 2.31 04/19/18 04/19/18 04/18/18 00:39 00:39 16:16 WBC 11.0 RBC 3.11 L Hgb 10.4 L Hct 30.6 L MCV 98.4 MCH 33.3 MCHC 33.8 RDW 13.4 Plt Count 245 MPV 8.8 APTT Troponin I Less than 0.02 L Less than 0.02 L Free T4 Free T3 Preliminary micro results at discharge 04/16/18 16:38 Aerobic Blood Culture - Preliminary Blood - Peripheral No growth in 3 days Anaerobic Blood Culture - Preliminary No growth in 3 days 04/16/18 16:30 Aerobic Blood Culture - Preliminary Blood - Peripheral No growth in 3 days Anaerobic Blood Culture - Preliminary No growth in 3 days - Impressions ITS Impressions Chest X-Ray 04/16/18 16:29 CONCLUSION: No acute cardiopulmonary disease. There is no evidence of pneumonia. Discharge Plan - Discharge Disposition Patient Disposition: 01 Discharge Home - Discharge Condition Condition: Stable - Discharge Order Discharge Orders: Discharge Order (Routine); Ordered 04/19/18 Ordered By: Austen Prakash - Physicians Team Primary Care Provider: Jeannette Alexander Attending Provider: Austen Prakash Other Providers: Roland Navarrete MD
[2018-04-19] MEDS ORDERED: Iohexol 350 MG/ML 50 ML Vial (for Cath Lab) IVCONTRAST ONE (16:54)
[2018-04-19] MEDS: buPROPion 150 MG 12 HR Tablet PO SCH (17:40)
[2018-04-19 22:27] VITALS: BP 133/60; PULSE 88; TEMP 98
== END 2018-04-19 21:43 | disposition home or self-care (01) ==
LOC: PHEDA 14:32 → PHED 14:32 → PH3 19:22 → HCPC 04-17 01:37
PROVIDERS: ADMIT Internal Medicine; ATTEND Internal Medicine